=== PATIENT | female | born 1985 | race Two or more races ===

== ENCOUNTER 2020-05-20 10:16 | Outpatient (REF) | payer OTHER, SELFPAY | END 2020-05-20 10:17 | disposition home or self-care (01) | LOC: HO.LAB 10:16 | PROVIDERS: Visit Provider Internal Medicine | DX: Z20.822 Contact with and (suspected) exposure to COVID-19 (principal) | CPT/HCPCS: 36415; C9803; U0003; U0005 ==

== ENCOUNTER 2020-05-27 12:12 | Outpatient (REF) | payer OTHER, SELFPAY | END 2020-05-27 12:13 | disposition home or self-care (01) | LOC: HO.LAB 12:12 | PROVIDERS: Visit Provider Internal Medicine | DX: Z20.822 Contact with and (suspected) exposure to COVID-19 (principal) | CPT/HCPCS: 36415; C9803; U0003; U0005 ==

== ENCOUNTER 2020-09-16 17:03 | Emergency (ER) | payer OTHER, SELFPAY ==
--- NOTE | ~2020-09-16 | XR_ITS ---
EXAMINATION: XR CHEST CLINICAL INFORMATION: Cough. COMPARISON: Most recent chest radiograph dated 07/04/2017. TECHNIQUE: 2 views of the chest were obtained. FINDINGS: The lungs are clear. The cardiomediastinal silhouette is normal in size. There is no pleural effusion or pneumothorax. No acute osseous abnormality. XR/XR chest 2V IMPRESSION: No acute cardiopulmonary findings.
[2020-09-16 18:53] VITALS: BP 133/67; PULSE 85; RESP 18; TEMP 36.8; O2SAT 98; BMI 28.2
--- NOTE | 2020-09-16 19:42 | ED.URI ---
HPI - URI/Sore Throat General Chief Complaint: Upper Respiratory Symptoms Stated Complaint: bad cough, covid symptoms Time Seen by Provider: 09/16/20 19:26 Source: patient Mode of arrival: ambulatory History of Present Illness HPI Narrative: 34-year-old female with no significant past medical history presenting to the ED complaining of productive cough since last week. Admits was tested for COVID-19 on Sunday and negative at PCPs office, recommended to be tested for influenza and obtain CXR. Denies fever, chills, ear pain, sore throat, chest pain, shortness of breath, recent travel, LE edema, history of blood clots MD elicited complaint: cough Related Data Previous Rx's Medication Instructions Recorded acetaminophen [Tylenol Extra 500 mg PO Q6H PRN #20 tab 09/16/20 Strength] albuterol sulfate 2 puff INHALATION Q4-6H PRN #6.7 g 09/16/20 benzonatate [Tessalon Perles] 100 mg PO TID PRN #14 cap 09/16/20 fluticasone propionate [Children's 2 spray INTRANASAL DAILY #16 g 09/16/20 Flonase Allergy Rlf] Allergies Allergy/AdvReac Type Severity Reaction Status Date / Time No Known Allergies Allergy Verified 09/16/20 18:53 [No Known Allergies*] Review of Systems Review of Systems: Constitutional: No Fever, No Chills ENT/Mouth: No Ear Pain, No Nasal Congestion, No Sinus Pain, No sore throat Cardiovascular: No Chest Pain, No SOB Respiratory: + Cough, + Sputum, No Wheezing Gastrointestinal: No Nausea, No Vomiting, No Abdominal pain Musculoskeletal: No joint pain, No Myalgias Skin: No Skin Lesions, No rash Yes all other systems are reviewed and are negative [facility] Past Medical History Attestation statement: The following information was validated with the patient. Medical History (Updated 09/16/20 @ 19:44 by LELIA Granda) Patient denies medical problems Social History Social History Advance Directives: No Patient : No Physical Exam Vital Signs: Vital Signs: Last Vital Signs Temp 98.2 F 09/16/20 18:53 Pulse 85 09/16/20 18:53 Resp 18 09/16/20 18:53 BP 133/67 09/16/20 18:53 Pulse Ox 98 09/16/20 18:53 Body Mass Index 28.2 Const: General: cooperative, healthy appearing and no acute distress Orientation/consciousness: patient oriented x3 Limitations: no limitations HENMT: Head: Yes normal to inspection Ears: hearing grossly normal bilaterally General nose exam: Normal external nose present Face and sinus: Yes normal facial exam Eyes: General: appearance normal, both eyes and all related structures EOM: EOMs intact bilaterally Neck: Neck: Yes normal visual inspection and Yes no meningeal signs Resp: Effort & Inspection: normal respiratory effort Auscultation: clear to auscultation bilaterally, no rales, no rhonchi and no wheezes Cardio: Rate: regular rate Heart sounds: S1 normal heart sound present and S2 normal heart sound present Skin: Rashes: no rashes Wounds: no wounds Neuro: General: patient oriented x3 and no meningeal signs Gait exam (Neuro): Normal gait present Extrem: General: Yes normal to inspection and Yes no pedal edema Course Course Course Narrative: XR chest 2V IMPRESSION: No acute cardiopulmonary findings. 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 Patient verbalized understanding feel safe for discharge home -2020--COVID-19/influenza/RSV negative. This was discussed with patient prior to discharge MDM - URI/Sore Throat MDM Narrative Medical decision making narrative: 34-year-old female with no significant past medical history presenting to the ED complaining of productive cough since last week. On exam vital signs stable, NAD, lungs CTA, no pedal edema. Concern for viral syndrome/COVID-19. Rule out pneumonia. Unlikely ACS/PE Plan: CXR, COVID-19/influenza/RSV testing Differential Diagnosis Differential diagnosis: Likely upper respiratory infection Lab Data Attestation: I reviewed the patient's lab results. Labs: Lab Results 09/16/20 Range/Units 19:26 Coronavirus (PCR) NEGATIVE (Negative) Influenza Type A (PCR) NEGATIVE (Negative) Influenza Type B (PCR) NEGATIVE (Negative) RSV RNA Qual (PCR) NEGATIVE (Negative) Discharge Plan Discharge Clinical Impression: Upper respiratory infection Patient Disposition: Home, Self-Care Instructions: Viral Syndrome (ED) Additional Instructions: You have likely a viral illness. Her COVID-19, influenza, and RSV are pending at this time, you will be called this evening with results. Tessalon Perles for cough, take as needed. Use albuterol inhaler at home for shortness of breath and wheezing. Flonase and nasal decongestion. Take Tylenol and Motrin at home. Rest, stay hydrated. If her symptoms persist or worsen please return to the ED, call your PCP for follow-up Es probable que tenga jono enfermedad viral. Velazquez COVID-19, influenza y RSV est?n pendientes en phillip momento, lo llamar?n esta noche con los resultados. Tessalon Perles para la tos, uriel seg?n sea necesario. Use un inhalador de albuterol en casa para la dificultad para respirar y las sibilancias. Flonase y descongesti?n nasal. Deville Tylenol y Motrin en casa. Descansa, mantente hidratado. Si randy s?ntomas persisten o empeoran, regrese al servicio de urgencias, llame a velazquez PCP para seguimiento. Prescriptions: New albuterol sulfate 90 mcg/actuation HFA aerosol inhaler 2 puff inhalation Q4-6H PRN (Reason: shortness of breath or wheezing) Qty: 6.7 RF: 0 acetaminophen [Tylenol Extra Strength] 500 mg tablet 500 mg PO Q6H PRN (Reason: pain or fever) Qty: 20 RF: 0 benzonatate [Tessalon Perles] 100 mg capsule 100 mg PO TID PRN (Reason: cough) Qty: 14 RF: 0 fluticasone propionate [Children's Flonase Allergy Rlf] 50 mcg/actuation spray,suspension 2 spray intranasal DAILY Qty: 16 RF: 0 Referrals: Micheline Kingston MD [Primary Care Provider] - 2 days Stand Alone Forms: Work/School Release Interventions: ED Discharge Assessment Last Done: 09/16/20 20:14 Print Language: Austrian
[2020-09-16 20:16] LABS: Influenza A PCR NEGATIVE (Negative); Influenza B PCR NEGATIVE (Negative); Resp Syncy Virus RNA Qual PCR NEGATIVE (Negative); SARS COV2 PCR INHOUSE NEGATIVE (Negative)
== END 2020-09-16 20:40 | disposition home or self-care (01) ==
PROVIDERS: Emergency Provider Internal Medicine; PCP Internal Medicine
DX: J06.9 Acute upper respiratory infection, unspecified (principal); R05 Cough; Z20.822 Contact with and (suspected) exposure to COVID-19; Z79.899 Other long term (current) drug therapy
CPT/HCPCS: 0241U; 36415; 71046; 99284

== ENCOUNTER 2020-09-28 07:56 | Emergency (ER) | payer OTHER, SELFPAY ==
[2020-09-28 08:17] VITALS: BP 122/73; PULSE 69; RESP 18; TEMP 36.8; O2SAT 97; BMI 26.9
--- NOTE | 2020-09-28 08:18 | ED_ITS ---
HPI - Abdominal Pain General Chief Complaint: Abdominal Pain <LELIA Orona Last Filed: 09/28/20 09:29> Stated Complaint: Abdominal pain <LELIA Orona Last Filed: 09/28/20:29> Time Seen by Provider: 09/28/20 08:17 <LELIA Orona Last Filed: 09/28/20 09:29> Source: patient <LELIA Orona Last Filed: 09/28/20 09:29> Mode of arrival: ambulatory <LELIA Orona Last Filed: 09/28/20 09:29> Limitations: no limitations <LELIA Orona Last Filed: 09/28/20 09:29> History of Present Illness HPI narrative: 34 y/o female with history of tubal ligation 11 years ago who presents to the ER with lower abdominal pain and pain with urination for the last 2 days. She has been taking over the counter medication for a urinary tract infection without improvement. She denies fever, chills, N/V/D. Denies chance of pre gnancy. No vaginal bleeding or discharge. LMP 3 weeks ago. She reports her urine is darker orange than usual and it briceño every time she urinates. She is urinary more frequently. Abdominal pain is lower and cramping in nature. She also has bilateral lower back pain. <LELIA Orona - Last Filed: 09/28/20 09:29> MD elicited complaint: abdominal pain and other (dysuria) <LELIA Orona Last Filed: 09/28/20 09:29> Pertinent past history: none <LELIA Orona Last Filed: 09/28/20:29> Onset (ago): day(s) (2) <LELIA Orona Last Filed: 09/28/20 09:29> Pain Consistency: intermittent <LELIA Orona Last Filed: 09/28/20:29> Location: suprapubic <LELIA Orona Last Filed: 09/28/20 09:29> Severity: moderate <LELIA Orona Last Filed: 09/28/20 09:29> Quality: cramping and burning <LELIA Orona Last Filed: 09/28/20 09:29> Radiation: none <LELIA Orona Last Filed: 09/28/20 09:29> Migration to: no migration <LELIA Orona Last Filed: 09/28/20 09:29> Exacerbating factors: other (urinating) <LELIA Orona Last Filed: 09/28/20 09:29> Relieving factors: nothing <LELIA Orona Last Filed: 09/28/20 09:29> Associated symptoms: denies other symptoms <LELIA Orona Last Filed: 09/28/20 09:29> Related Data Home Medications: Previous Rx's Medication Instructions Recorded acetaminophen [Tylenol Extra 500 mg PO Q6H PRN #20 tab 09/16/20 Strength] albuterol sulfate 2 puff INHALATION Q4-6H PRN #6.7 g 09/16/20 benzonatate [Tessalon Perles] 100 mg PO TID PRN #14 cap 09/16/20 fluticasone propionate [Children's 2 spray INTRANASAL DAILY #16 g 09/16/20 Flonase Allergy Rlf] cefuroxime axetil 250 mg PO BID #10 tab 09/28/20 phenazopyridine [Pyridium] 100 mg PO TID PRN #6 tab 09/28/20 <LELIA Orona Last Filed: 09/28/20 09:29> Allergies/Adverse Reactions: Allergies Allergy/AdvReac Type Severity Reaction Status Date / Time No Known Allergies Allergy Verified 09/16/20 18:53 [No Known Allergies*] <LELIA Orona Last Filed: 09/28/20 09:29> Review of Systems Review of Systems Constitutional: No Fever, No Chills Cardiovascular: No Chest Pain, No SOB, No Orthopnea, No Edema Respiratory: No Cough, No Sputum, No Wheezing, No dyspnea Gastrointestinal: No Nausea, No Vomiting, No Diarrhea, + abdominal Pain Genitourinary: + Dysuria, + Urinary Frequency, No Hematuria Musculoskeletal: No joint pain, No Myalgias Skin: No Skin Lesions, No rash Neuro: No Weakness, No Numbness, No Dizziness, No Headache Heme/Lymph: No Bruising, No Lymphadenopathy Endocrine: No Polyuria, No Polydipsia <LELIA Orona - Last Filed: 09/28/20 09:29> Physical Exam Vital Signs: Vital Signs: Last Vital Signs Temp 98.2 F 09/28/20 08:17 Pulse 69 09/28/20 08:17 Resp 18 09/28/20 08:17 BP 122/73 09/28/20 08:17 Pulse Ox 97 09/28/20 08:17 Body Mass Index 26.9 Appearance: Alert. Oriented X3. No acute distress. Eyes: Pupils equal, round and reactive to light. ENT: Pharynx normal. Neck: Normal inspection. Neck supple. CVS: Normal heart rate and rhythm. Pulses normal. Respiratory: No respiratory distress. Breath sounds normal. Abdomen: Soft with mild suprapubic tenderness, no rebound or guarding. +BS x4. Pelvic exam deferred Skin: Skin warm and dry. Normal skin color. Normal skin turgor. No rashes. Extremities: No lower extremity edema. Neuro: Oriented X 3. No motor deficit. No sensory deficit. <LELIA Orona - Last Filed: 09/28/20 09:29> Vital Signs: Last Vital Signs Temp 98.2 F 09/28/20 08:17 Pulse 69 09/28/20 08:17 Resp 18 09/28/20 08:17 BP 122/73 09/28/20 08:17 Pulse Ox 97 09/28/20 08:17 Body Mass Index 26.9 <Israel Soto MD - Last Filed: 11/02/20 07:50> Course Course Course Narrative: 34 y/o female presenting with dysuria and suprapubic abdominal pain x2 days. Non-toxic appearing, afebrile. No N/V. Also reports bilateral lower back pain. Doubt pyelonephritis or kidney stones. Will get lab workup and UA, Upreg. <LELIA Orona - Last Filed: 09/28/20 09:29> Reevaluation(s) Reevaluation #1: UA is grossly positive for infection. No leukocytosis. Renal function is normal. She is stable for initiation of PO abx and Pyridium for symptomatic relief. Stable for discharge home. <LELIA Orona - Last Filed: 09/28/20 09:29> I have reviewed the chart <Israel Soto MD - Last Filed: 11/02/20 07:50> Time: 07:49 <Israel Soto MD - Last Filed: 11/02/20 07:50> MDM - Abdominal Pain Lab Data Result diagrams: : 09/28/20 08:35 09/28/20 08:35 <LELIA Orona - Last Filed: 09/28/20 09:29> Labs: Lab Results 09/28/20 09/28/20 09/28/20 Range/Units 08:35 08:35 08:35 WBC 9.8 (4.8-10.8) X10*3/uL RBC 4.25 (4.20-5.50) X10*6/uL Hgb 11.6 L (12.0-16.0) g/dl Hct 36.0 L (37-47) % MCV 84.7 (80-98) fL MCH 27.3 (27.0-33.0) pg MCHC 32.2 (31.0-35.0) g/dl RDW 13.2 (11.0-16.0) % Plt Count 258 (160-400) X10*3/uL MPV 9.9 (9.4-12.3) fL Immature Gran % (Auto) 0.4 (0.0-0.4) % Neut % (Auto) 75.9 H (45-73) % Lymph % (Auto) 16.4 L (20-40) % Kidder % (Auto) 5.9 (2-11) % Eos % (Auto) 1.1 (0-4) % Baso % (Auto) 0.3 (0-2) % Lymph # (Auto) 1.6 (1.2-4.9) X10*3/uL Kidder # (Auto) 0.6 (0.1-1.2) X10*3/uL Eos # (Auto) 0.1 (0.0-0.4) X10*3/uL Baso # (Auto) 0.0 (0.0-0.2) X10*3/uL Abs Immat Gran (auto) 0.04 H (0.00-0.03) X10*3/uL Absolute Neuts (auto) 7.4 (2.0-8.3) X10*3/uL Absolute Nucleated RBC 0.000 (0.0-0.012) X10*3/uL Nucleated RBC % (auto) 0.0 (0.0-0.2) /100WBC Sodium 140 (135-145) mmol/L Potassium 5.2 H (3.3-5.1) mmol/L Chloride 106 (96-108) mmol/L Carbon Dioxide 28 (22-29) mmol/L Anion Gap 11 L (12-20) BUN 13 (9-16) mg/dL Creatinine 0.66 (0.5-1.4) mg/dL Estim Creat Clear Calc 126.7 Estimated GFR > 60 Random Glucose 85 (60-115) mg/dL Calcium 9.1 (8.4-10.2) mg/dL Magnesium 2.1 (1.6-2.6) mg/dL Total Bilirubin 0.3 (0.0-1.0) mg/dL Direct Bilirubin < 0.2 (0.0-0.5) mg/dL AST 13 (5-31) U/L ALT 8 (0-31) U/L Alkaline Phosphatase 74 (39-117) U/L Total Protein 7.3 (6.5-8.0) g/dL Albumin 4.1 (3.5-5.0) g/dL Lipase 16 (8-78) U/L Beta HCG, Quant < 2 mIU/mL Urine Color Urine Appearance Urine pH (5.0-8.0) Ur Specific [place] (1.005-1.025) Urine Protein (NEG-TRACE) MG/DL Urine Glucose (UA) (NEG) MG/DL Urine Ketones (NEG) MG/DL Urine Blood (NEG) Urine Nitrite Ur Leukocyte Esterase (NEG) Urine RBC (0) /HPF Urine WBC (0-4) /HPF Ur Squamous Epith Cells /LPF Urine Bacteria /LPF Urine Test (NEGATIVE) 09/28/20 09/28/20 Range/Units 08:35 08:35 WBC (4.8-10.8) X10*3/uL RBC (4.20-5.50) X10*6/uL Hgb (12.0-16.0) g/dl Hct (37-47) % MCV (80-98) fL MCH (27.0-33.0) pg MCHC (31.0-35.0) g/dl RDW (11.0-16.0) % Plt Count (160-400) X10*3/uL MPV (9.4-12.3) fL Immature Gran % (Auto) (0.0-0.4) % Neut % (Auto) (45-73) % Lymph % (Auto) (20-40) % Kidder % (Auto) (2-11) % Eos % (Auto) (0-4) % Baso % (Auto) (0-2) % Lymph # (Auto) (1.2-4.9) X10*3/uL Kidder # (Auto) (0.1-1.2) X10*3/uL Eos # (Auto) (0.0-0.4) X10*3/uL Baso # (Auto) (0.0-0.2) X10*3/uL Abs Immat Gran (auto) (0.00-0.03) X10*3/uL Absolute Neuts (auto) (2.0-8.3) X10*3/uL Absolute Nucleated RBC (0.0-0.012) X10*3/uL Nucleated RBC % (auto) (0.0-0.2) /100WBC Sodium (135-145) mmol/L Potassium (3.3-5.1) mmol/L Chloride (96-108) mmol/L Carbon Dioxide (22-29) mmol/L Anion Gap (12-20) BUN (9-16) mg/dL Creatinine (0.5-1.4) mg/dL Estim Creat Clear Calc Estimated GFR Random Glucose (60-115) mg/dL Calcium (8.4-10.2) mg/dL Magnesium (1.6-2.6) mg/dL Total Bilirubin (0.0-1.0) mg/dL Direct Bilirubin (0.0-0.5) mg/dL AST (5-31) U/L ALT (0-31) U/L Alkaline Phosphatase (39-117) U/L Total Protein (6.5-8.0) g/dL Albumin (3.5-5.0) g/dL Lipase (8-78) U/L Beta HCG, Quant mIU/mL Urine Color DARK YELLOW Urine Appearance CLOUDY Urine pH 7.0 (5.0-8.0) Ur Specific [place] 1.025 (1.005-1.025) Urine Protein 1+ H (NEG-TRACE) MG/DL Urine Glucose (UA) NEG (NEG) MG/DL Urine Ketones NEG (NEG) MG/DL Urine Blood 3+ H (NEG) Urine Nitrite TNP Ur Leukocyte Esterase 1+ H (NEG) Urine RBC 50-75 H (0) /HPF Urine WBC 50-75 H (0-4) /HPF Ur Squamous Epith Cells 1+ /LPF Urine Bacteria NONE /LPF Urine Test NEGATIVE (NEGATIVE) <LELIA Orona - Last Filed: 09/28/20 09:29> Lab Results 09/28/20 09/28/20 09/28/20 Range/Units 08:35 08:35 08:35 WBC 9.8 (4.8-10.8) X10*3/uL RBC 4.25 (4.20-5.50) X10*6/uL Hgb 11.6 L (12.0-16.0) g/dl Hct 36.0 L (37-47) % MCV 84.7 (80-98) fL MCH 27.3 (27.0-33.0) pg MCHC 32.2 (31.0-35.0) g/dl RDW 13.2 (11.0-16.0) % Plt Count 258 (160-400) X10*3/uL MPV 9.9 (9.4-12.3) fL Immature Gran % (Auto) 0.4 (0.0-0.4) % Neut % (Auto) 75.9 H (45-73) % Lymph % (Auto) 16.4 L (20-40) % Kidder % (Auto) 5.9 (2-11) % Eos % (Auto) 1.1 (0-4) % Baso % (Auto) 0.3 (0-2) % Lymph # (Auto) 1.6 (1.2-4.9) X10*3/uL Kidder # (Auto) 0.6 (0.1-1.2) X10*3/uL Eos # (Auto) 0.1 (0.0-0.4) X10*3/uL Baso # (Auto) 0.0 (0.0-0.2) X10*3/uL Abs Immat Gran (auto) 0.04 H (0.00-0.03) X10*3/uL Absolute Neuts (auto) 7.4 (2.0-8.3) X10*3/uL Absolute Nucleated RBC 0.000 (0.0-0.012) X10*3/uL Nucleated RBC % (auto) 0.0 (0.0-0.2) /100WBC Sodium 140 (135-145) mmol/L Potassium 5.2 H (3.3-5.1) mmol/L Chloride 106 (96-108) mmol/L Carbon Dioxide 28 (22-29) mmol/L Anion Gap 11 L (12-20) BUN 13 (9-16) mg/dL Creatinine 0.66 (0.5-1.4) mg/dL Estim Creat Clear Calc 126.7 Estimated GFR > 60 Random Glucose 85 (60-115) mg/dL Calcium 9.1 (8.4-10.2) mg/dL Magnesium 2.1 (1.6-2.6) mg/dL Total Bilirubin 0.3 (0.0-1.0) mg/dL Direct Bilirubin < 0.2 (0.0-0.5) mg/dL AST 13 (5-31) U/L ALT 8 (0-31) U/L Alkaline Phosphatase 74 (39-117) U/L Total Protein 7.3 (6.5-8.0) g/dL Albumin 4.1 (3.5-5.0) g/dL Lipase 16 (8-78) U/L Beta HCG, Quant < 2 mIU/mL Urine Color Urine Appearance Urine pH (5.0-8.0) Ur Specific [place] (1.005-1.025) Urine Protein (NEG-TRACE) MG/DL Urine Glucose (UA) (NEG) MG/DL Urine Ketones (NEG) MG/DL Urine Blood (NEG) Urine Nitrite Ur Leukocyte Esterase (NEG) Urine RBC (0) /HPF Urine WBC (0-4) /HPF Ur Squamous Epith Cells /LPF Urine Bacteria /LPF Urine Test (NEGATIVE) 09/28/20 09/28/20 Range/Units 08:35 08:35 WBC (4.8-10.8) X10*3/uL RBC (4.20-5.50) X10*6/uL Hgb (12.0-16.0) g/dl Hct (37-47) % MCV (80-98) fL MCH (27.0-33.0) pg MCHC (31.0-35.0) g/dl RDW (11.0-16.0) % Plt Count (160-400) X10*3/uL MPV (9.4-12.3) fL Immature Gran % (Auto) (0.0-0.4) % Neut % (Auto) (45-73) % Lymph % (Auto) (20-40) % Kidder % (Auto) (2-11) % Eos % (Auto) (0-4) % Baso % (Auto) (0-2) % Lymph # (Auto) (1.2-4.9) X10*3/uL Kidder # (Auto) (0.1-1.2) X10*3/uL Eos # (Auto) (0.0-0.4) X10*3/uL Baso # (Auto) (0.0-0.2) X10*3/uL Abs Immat Gran (auto) (0.00-0.03) X10*3/uL Absolute Neuts (auto) (2.0-8.3) X10*3/uL Absolute Nucleated RBC (0.0-0.012) X10*3/uL Nucleated RBC % (auto) (0.0-0.2) /100WBC Sodium (135-145) mmol/L Potassium (3.3-5.1) mmol/L Chloride (96-108) mmol/L Carbon Dioxide (22-29) mmol/L Anion Gap (12-20) BUN (9-16) mg/dL Creatinine (0.5-1.4) mg/dL Estim Creat Clear Calc Estimated GFR Random Glucose (60-115) mg/dL Calcium (8.4-10.2) mg/dL Magnesium (1.6-2.6) mg/dL Total Bilirubin (0.0-1.0) mg/dL Direct Bilirubin (0.0-0.5) mg/dL AST (5-31) U/L ALT (0-31) U/L Alkaline Phosphatase (39-117) U/L Total Protein (6.5-8.0) g/dL Albumin (3.5-5.0) g/dL Lipase (8-78) U/L Beta HCG, Quant mIU/mL Urine Color DARK YELLOW Urine Appearance CLOUDY Urine pH 7.0 (5.0-8.0) Ur Specific [place] 1.025 (1.005-1.025) Urine Protein 1+ H (NEG-TRACE) MG/DL Urine Glucose (UA) NEG (NEG) MG/DL Urine Ketones NEG (NEG) MG/DL Urine Blood 3+ H (NEG) Urine Nitrite TNP Ur Leukocyte Esterase 1+ H (NEG) Urine RBC 50-75 H (0) /HPF Urine WBC 50-75 H (0-4) /HPF Ur Squamous Epith Cells 1+ /LPF Urine Bacteria NONE /LPF Urine Test NEGATIVE (NEGATIVE) <Israel Soto MD - Last Filed: 11/02/20 07:50> Discharge Plan Discharge Clinical Impression: UTI (urinary tract infection) <LELIA Orona - Last Filed: 09/28/20 09:29> Patient Disposition: Home, Self-Care <LELIA Orona - Last Filed: 09/28/20 09:29> Instructions: Urinary Tract Infection in Women (ED) <LELIA Orona - Last Filed: 09/28/20 09:29> Additional Instructions: Your urine test showed infection. Your blood work was unremarkable. Take the prescribed antibiotic as directed - start taking tonight, you were given 1st dose in the ER. Stay hydrated, drink plenty of water. Take Pyridium as needed for bladder pain - it will turn your urine orange and this is normal. Follow up with your doctor as needed. No sexual activity until all your symptoms are completely resolved. If you have worsening pain or develop vomiting, fevers or any other concerns come back to the ER for further evaluation. Henry an?lisis de orina mostr? infecci?n. Tu an?lisis de mikaela no tuvo nada especial. [place] el antibi?vasiliy recetado seg?n las indicaciones; comience a tomarlo esta noche, le dieron la primera dosis en la candace de emergencias. Mantente hidratado, anaya niya agua. [place] Pyridium seg?n sea necesario para el dolor de vejiga; dasha? que henry orina se vuelva naranja y esto es normal. [place] un seguimiento con henry m?dico seg?n sea necesario. No tenga actividad sexual hasta que todos randy s?ntomas se hayan resuelto por completo. Si tiene un dolor que empeora o desarrolla v?mitos, fiebre o cualquier otra in quietud, regrese a la candace de emergencias para jono evaluaci?n adicional. <LELIA Orona - Last Filed: 09/28/20 09:29> Prescriptions: New cefuroxime axetil 250 mg tablet 250 mg PO BID Qty: 10 RF: 0 phenazopyridine [Pyridium] 100 mg tablet 100 mg PO TID PRN (Reason: pain) Qty: 6 RF: 0 No Action albuterol sulfate 90 mcg/actuation HFA aerosol inhaler 2 puff inhalation Q4-6H PRN (Reason: shortness of breath or wheezing) Qty: 6.7 RF: 0 acetaminophen [Tylenol Extra Strength] 500 mg tablet 500 mg PO Q6H PRN (Reason: pain or fever) Qty: 20 RF: 0 benzonatate [Tessalon Perles] 100 mg capsule 100 mg PO TID PRN (Reason: cough) Qty: 14 RF: 0 fluticasone propionate [Children's Flonase Allergy Rlf] 50 mcg/actuation spray,suspension 2 spray intranasal DAILY Qty: 16 RF: 0 <LELIA Orona - Last Filed: 09/28/20 09:29> Interventions: ED Discharge Assessment Last Done: 09/28/20 10:30 <LELIA Orona - Last Filed: 09/28/20 09:29> Discharge Date/Time: 09/28/20 10:30 <LELIA Orona - Last Filed: 09/28/20 09:29> [facility] Past Medical History Attestation statement: The following information was validated with the patient. <LELIA Orona - Last Filed: 09/28/20 09:29> Medical History: Medical History Patient denies medical problems <LELIA Orona - Last Filed: 09/28/20 09:29> Social History Social History: Social History Advance Directives: No Advance Directives Information Provided: No <LELIA Orona - Last Filed: 09/28/20 09:29>
[2020-09-28 08:44] LABS: MANUAL DIFF FLAG NO
[2020-09-28 08:47] LABS: Basophils Percent Auto 0.3 % (0-2); Eosinophils Absolute Auto 0.1 X10*3/uL (0.0-0.4); Eosinophils Percent Auto 1.1 % (0-4); Glucose Urine UA NEG (NEG); Hemoglobin 11.6 g/dl (12.0-16.0); Imm Gran Abs Auto 0.04 X10*3/uL (0.00-0.03); Imm Gran Pct Auto 0.4 % (0.0-0.4); Leukocyte Esterase Urine 1+ (NEG); Lymphocytes Absolute Auto 1.6 X10*3/uL (1.2-4.9); Lymphocytes Percent Auto 16.4 % (20-40); Mean Corpuscular HGB Conc 32.2 g/dl (31.0-35.0); Mean Corpuscular Hemoglobin 27.3 pg (27.0-33.0); Mean Corpuscular Volume 84.7 fL (80-98); Mean Platelet Volume 9.9 fL (9.4-12.3); Monocytes Absolute Auto 0.6 X10*3/uL (0.1-1.2); Monocytes Percent Auto 5.9 % (2-11); Neutrophils Absolute Auto 7.4 X10*3/uL (2.0-8.3); Neutrophils Percent Auto 75.9 % (45-73); Platelet Count 258 X10*3/uL (160-400); Red Blood Count 4.25 X10*6/uL (4.20-5.50); Red Cell Distribution Width 13.2 % (11.0-16.0); Specific Gravity - Urine 1.025 (1.005-1.025); UACC Culture Trigger YES; Urine Blood 3+ (NEG); Urine Ketones NEG (NEG); Urine Protein 1+ MG/DL (NEG-TRACE); White Blood Count 9.8 X10*3/uL (4.8-10.8)
[2020-09-28 08:48] LABS: Appearance Urine CLOUDY; Color Urine DARK YELLOW
[2020-09-28 08:50] LABS: UPreg QC Valid YES; Urine Pregnancy NEGATIVE (NEGATIVE)
[2020-09-28 08:58] LABS: RBC Urine 50-75 /HPF (0); Squamous Epithelial Cell Urine 1+ /LPF; WBC Urine 50-75 /HPF (0-4)
[2020-09-28] MEDS: Phenazopyridine HCL 200 MG TABLET PO (09:05)
[2020-09-28 09:11] LABS: Anion Gap 11 (12-20); Blood Urea Nitrogen 13 mg/dL (9-16); Calcium 9.1 mg/dL (8.4-10.2); Carbon Dioxide 28 mmol/L (22-29); Chloride 106 mmol/L (96-108); Creatinine Clr Calc Pharmacy 126.7; Estimated Glomerular Filt Rate > 60; Glucose Random 85 mg/dL (60-115); Potassium 5.2 mmol/L (3.3-5.1); Sodium 140 mmol/L (135-145)
[2020-09-28 09:12] LABS: Alanine Aminotransferase 8 U/L (0-31); Albumin Level 4.1 g/dL (3.5-5.0); Alkaline Phosphatase 74 U/L (39-117); Aspartate Amino Transferase 13 U/L (5-31); Bilirubin Direct < 0.2 mg/dL (0.0-0.5); Bilirubin Total 0.3 mg/dL (0.0-1.0); Lipase 16 U/L (8-78); Magnesium 2.1 mg/dL (1.6-2.6); Total Protein 7.3 g/dL (6.5-8.0)
[2020-09-28 09:18] LABS: HCG Quantitative < 2 mIU/mL
== END 2020-09-28 10:30 | disposition home or self-care (01) ==
PROVIDERS: Physician Assistant; Emergency Provider Emergency Medicine; PCP Internal Medicine
DX: N30.01 Acute cystitis with hematuria (principal); Z98.51 Tubal ligation status
CPT/HCPCS: 36415; 80048; 80076; 81001; 81003; 81025; 83690; 83735; 84702; 85025; 87086; 87088; 87186; 99283

== ENCOUNTER 2020-12-21 13:43 | Emergency (ER) | payer OTHER, SELFPAY ==
[2020-12-21 14:55] VITALS: BP 123/84; PULSE 64; RESP 19; TEMP 36.1; O2SAT 99; BMI 25.0
--- NOTE | 2020-12-21 17:01 | ED_ITS ---
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 Patient tells me she started to feel like she was on a boat and her body was rocking. She had some nausea with this. She denies any vision changes, vomiting, numbness or tingling. No chest pain or abdominal pain. No headache. Eating and drinking normally. No recent URI symptoms Related Data Previous Rx's Medication Instructions Recorded acetaminophen 500 mg tablet 500 mg PO Q6H PRN #20 tab 09/16/20 (Tylenol Extra Strength) albuterol sulfate 90 mcg/actuation 2 puff INHALATION Q4-6H PRN #6.7 g 09/16/20 aerosol inhaler benzonatate 100 mg capsule 100 mg PO TID PRN #14 cap 09/16/20 (Tessalon Perles) fluticasone propionate 50 2 spray INTRANASAL DAILY #16 g 09/16/20 mcg/actuation nasal spray,suspension (Children's Flonase Allergy Relief) cefuroxime axetil 250 mg tablet 250 mg PO BID #10 tab 09/28/20 phenazopyridine 100 mg tablet 100 mg PO TID PRN #6 tab 09/28/20 (Pyridium) meclizine 25 mg tablet 25 mg PO TID PRN #10 tab 12/21/20 Allergies Allergy/AdvReac Type Severity Reaction Status Date / Time No Known Allergies Allergy Verified 09/16/20 18:53 [No Known Allergies*] Review of Systems Review of Systems: Yes all other systems are reviewed and are negative Constitutional: Constitutional: Reports no additional constitutional complaints, Denies body ache(s), Denies chills, Denies fever(s), Denies headache(s) and Denies weakness Eyes: Eyes: Reports no additional eye complaints and Denies change in vision ENT: Reports system reviewed and no additional complaints, except as documen corey, Reports dizziness, Denies headache(s), Denies nasal congestion, Denies nasal discharge and Denies neck pain Cardiovascular: Cardiovascular: Reports no additional cardiovascular complaints, Denies chest pain, Denies leg edema and Denies dyspnea Respiratory: Respiratory: Reports no additional respiratory complaints, Denies cough and Denies dyspnea Gastrointestinal: Gastrointestinal: Reports no additional gastrointestinal complaints, Denies abdominal pain, Denies diarrhea, Denies nausea and Denies vomiting Genitourinary: Genitourinary: Reports no additional female genitourinary complaints and Denies urinary incontinence Musculoskeletal: Musculoskeletal: Reports no additional musculoskeletal complaints, Denies back pain, Denies arthralgias, Denies joint swelling, Denies neck pain, Denies numbness and Denies tingling Integumentary/Breasts: Skin/Breast: Reports system reviewed and no additional complaints, except as docu and Denies rash Neurologic: Reports system reviewed and no additional complaints, except as documented, Denies Abnormal speech present, Reports dizziness, Denies headache(s), Denies numbness, Denies tingling and Denies weakness PMFSH Past Medical History Attestation statement: The following information was validated with the patient. Source: old records reviewed and nursing notes reviewed Medical History Patient denies medical problems Social History Social History Advance Directives: No Advance Directives Information Provided: No Patient : No Physical Exam Vital Signs: Vital Signs: Last Vital Signs Temp 97 F 12/21/20 14:55 Pulse 78 12/21/20 18:01 Resp 18 12/21/20 17:33 BP 131/68 12/21/20 18:01 Pulse Ox 100 12/21/20 17:33 Body Mass Index 25.0 Const: General: cooperative, healthy appearing, comfortable and no acute distress Orientation/consciousness: patient oriented x3 Limitations: no limitations HENMT: Head: Yes normal to inspection Ears: hearing grossly normal bilaterally and TM's normal bilaterally General nose exam: Normal external nose present Face and sinus: Yes normal facial exam Mouth: Normal oral and palatal mucosa present Throat: Yes posterior oropharynx normal, Yes tonsils normal and Yes uvula midline Eyes: General: appearance normal, both eyes and all related structures Pupils: Equal, round and reactive pupils present Neck: Neck: Yes normal visual inspection Chest: Chest palpation & inspection: normal inspection of the chest Resp: Effort & Inspection: normal respiratory effort Auscultation: clear to auscultation bilaterally Cardio: Rate: regular rate Rhythm: regular rhythm Peripheral pulses: Peripheral pulses 2+ throughout GI: Inspection: Yes normal to inspection Palpation (GI): Soft to palpation and nontender Auscultation: normal bowel sounds Back/Spine/Pelvis: Thoracic/Lumbar Spine: thoracic and lumbar spine normal to inspection Skin: General skin exam: no rashes or lesions noted Neuro: General: patient oriented x3, no focal motor deficits and normal sensation to monofilament Cranial nerves: Yes CN's II-XII intact bilaterally, Yes Equal, round and reactive pupils present, Yes Bilaterally intact EOM present, Yes Nystagmus not present, Yes Normal facial strength present and Yes Midline tongue present Cognition (Neuro): normal cognition Speech: No Abnormal speech present Gait exam (Neuro): Normal gait present Motor exam (neuro): 5/5 motor strength present throughout Sensory Exam: Normal double simultaneous stimulation for sensation Coordination: trlmmo-ob-[id number] test normal, xwpa-us-ctoi test normal and tandem gait normal Extrem: General: Yes normal to inspection, Yes no pedal edema and Yes no calf tenderness NIH Stroke Scale Internal: Initial- Upon Arrival Level of Consciousness: Alert Level of Consciousness Questions: Answers both questions correctly Level of Consciousness Commands: Performs both tasks correctly Best Gaze: Normal Visual: No visual loss Facial Palsy: Normal Motor Arm (Right): No drift Motor Arm (Left): No drift Motor Leg (Right): No drift Motor Leg (Left): No drift Limb Ataxia: Absent Sensory: Normal Best Language: No aphasia Dysarthia: Normal Extinction and Inattention: No abnormality Score: 0 Course Course Course Narrative: 35-year-old female here with complaints of dizziness which is described as her body moving for several hours. Normal neurological exam. No neuro deficits or red flag symptoms. Likely BPPV. Will check labs, UA, orthostatics. Will give meclizine and reassess. 1900-labs, urine and orthostatics are negative. Patient received meclizine and tells me her symptoms are resolved. Likely vertigo. Will send home with p.r.n.. Reviewed worrisome signs and symptoms of when to return to the emergency department. Comfortable discharge home. MDM - Dizziness MDM Narrative Medical decision making narrative: Less likely CVA with normal neurological exam and improving symptoms Differential Diagnosis Differential diagnosis: Likely benign paroxysmal positional vertigo and orthostatic hypotension Medical Records Attestation: I reviewed the patient's medical records. Lab Data Attestation: I reviewed the patient's lab results. Result diagrams: 12/21/20 17:56 12/21/20 17:56 Labs: Lab Results 12/21/20 12/21/20 12/21/20 Range/Units 17:56 17:56 18:02 WBC 7.6 (4.8-10.8) X10*3/uL RBC 4.47 (4.20-5.50) X10*6/uL Hgb 12.1 (12.0-16.0) g/dl Hct 36.9 L (37-47) % MCV 82.6 (80-98) fL MCH 27.1 (27.0-33.0) pg MCHC 32.8 (31.0-35.0) g/dl RDW 13.5 (11.0-16.0) % Plt Count 266 (160-400) X10*3/uL MPV 10.3 (9.4-12.3) fL Immature Gran % (Auto) 0.7 H (0.0-0.4) % Neut % (Auto) 64.6 (45-73) % Lymph % (Auto) 26.2 (20-40) % [place] % (Auto) 6.9 (2-11) % Eos % (Auto) 1.2 (0-4) % Baso % (Auto) 0.4 (0-2) % Lymph # (Auto) 2.0 (1.2-4.9) X10*3/uL [place] # (Auto) 0.5 (0.1-1.2) X10*3/uL Eos # (Auto) 0.1 (0.0-0.4) X10*3/uL Baso # (Auto) 0.0 (0.0-0.2) X10*3/uL Abs Immat Gran (auto) 0.05 H (0.00-0.03) X10*3/uL Absolute Neuts (auto) 4.9 (2.0-8.3) X10*3/uL Absolute Nucleated RBC 0.000 (0.0-0.012) X10*3/uL Nucleated RBC % (auto) 0.0 (0.0-0.2) /100WBC Sodium 137 (135-145) mmol/L Potassium 4.0 D (3.3-5.1) mmol/L Chloride 102 (96-108) mmol/L Carbon Dioxide 27 (22-29) mmol/L Anion Gap 12 (12-20) BUN 7 L (9-16) mg/dL Creatinine 0.68 (0.5-1.4) mg/dL Estim Creat Clear Calc 110.1 Estimated GFR > 60 Random Glucose 129 H D (60-115) mg/dL Calcium 9.2 (8.4-10.2) mg/dL Magnesium 1.9 (1.6-2.6) mg/dL Total Bilirubin 0.4 (0.0-1.0) mg/dL Direct Bilirubin < 0.2 (0.0-0.5) mg/dL AST 15 (5-31) U/L ALT 15 (0-31) U/L Alkaline Phosphatase 75 (39-117) U/L Total Protein 7.9 (6.5-8.0) g/dL Albumin 4.3 (3.5-5.0) g/dL Urine Color YELLOW Urine Appearance HAZY Urine pH 6.5 (5.0-8.0) Ur Specific [place] 1.015 (1.005-1.025) Urine Protein NEG (NEG-TRACE) MG/DL Urine Glucose (UA) NEG (NEG) MG/DL Urine Ketones NEG (NEG) MG/DL Urine Blood TRACE (NEG) Urine Nitrite NEG (NEG) Ur Leukocyte Esterase NEG (NEG) Urine RBC 0-2 (0) /HPF Urine WBC 0 (0-4) /HPF Ur Squamous Epith Cells 2+ /LPF Urine Bacteria NONE /LPF Urine Mucus 1+ /LPF Urine Test (NEGATIVE) 12/21/20 Range/Units 18:02 WBC (4.8-10.8) X10*3/uL RBC (4.20-5.50) X10*6/uL Hgb (12.0-16.0) g/dl Hct (37-47) % MCV (80-98) fL MCH (27.0-33.0) pg MCHC (31.0-35.0) g/dl RDW (11.0-16.0) % Plt Count (160-400) X10*3/uL MPV (9.4-12.3) fL Immature Gran % (Auto) (0.0-0.4) % Neut % (Auto) (45-73) % Lymph % (Auto) (20-40) % [place] % (Auto) (2-11) % Eos % (Auto) (0-4) % Baso % (Auto) (0-2) % Lymph # (Auto) (1.2-4.9) X10*3/uL [place] # (Auto) (0.1-1.2) X10*3/uL Eos # (Auto) (0.0-0.4) X10*3/uL Baso # (Auto) (0.0-0.2) X10*3/uL Abs Immat Gran (auto) (0.00-0.03) X10*3/uL Absolute Neuts (auto) (2.0-8.3) X10*3/uL Absolute Nucleated RBC (0.0-0.012) X10*3/uL Nucleated RBC % (auto) (0.0-0.2) /100WBC Sodium (135-145) mmol/L Potassium (3.3-5.1) mmol/L Chloride (96-108) mmol/L Carbon Dioxide (22-29) mmol/L Anion Gap (12-20) BUN (9-16) mg/dL Creatinine (0.5-1.4) mg/dL Estim Creat Clear Calc Estimated GFR Random Glucose (60-115) mg/dL Calcium (8.4-10.2) mg/dL Magnesium (1.6-2.6) mg/dL Total Bilirubin (0.0-1.0) mg/dL Direct Bilirubin (0.0-0.5) mg/dL AST (5-31) U/L ALT (0-31) U/L Alkaline Phosphatase (39-117) U/L Total Protein (6.5-8.0) g/dL Albumin (3.5-5.0) g/dL Urine Color Urine Appearance Urine pH (5.0-8.0) Ur Specific [place] (1.005-1.025) Urine Protein (NEG-TRACE) MG/DL Urine Glucose (UA) (NEG) MG/DL Urine Ketones (NEG) MG/DL Urine Blood (NEG) Urine Nitrite (NEG) Ur Leukocyte Esterase (NEG) Urine RBC (0) /HPF Urine WBC (0-4) /HPF Ur Squamous Epith Cells /LPF Urine Bacteria /LPF Urine Mucus /LPF Urine Test NEGATIVE (NEGATIVE) Discharge Plan Discharge Clinical Impression: Benign paroxysmal positional vertigo Patient Disposition: Home, Self-Care Instructions: Vertigo (ED) Additional Instructions: Increase fluids, rest Change positions slowly Take meclizine for symptoms as needed Follow-up with your primary care doctor in several days for persistent symptoms Prescriptions: New meclizine 25 mg tablet 25 mg PO TID PRN (Reason: dizziness) Qty: 10 RF: 0 No Action albuterol sulfate 90 mcg/actuation HFA aerosol inhaler 2 puff inhalation Q4-6H PRN (Reason: shortness of breath or wheezing) Qty: 6.7 RF: 0 acetaminophen [Tylenol Extra Strength] 500 mg tablet 500 mg PO Q6H PRN (Reason: pain or fever) Qty: 20 RF: 0 benzonatate [Tessalon Perles] 100 mg capsule 100 mg PO TID PRN (Reason: cough) Qty: 14 RF: 0 fluticasone propionate [Children's Flonase Allergy Rlf] 50 mcg/actuation spray,suspension 2 spray intranasal DAILY Qty: 16 RF: 0 cefuroxime axetil 250 mg tablet 250 mg PO BID Qty: 10 RF: 0 phenazopyridine [Pyridium] 100 mg tablet 100 mg PO TID PRN (Reason: pain) Qty: 6 RF: 0 Referrals: Micheline Kingston MD [Primary Care Provider] - 2 days Stand Alone Forms: Work/School Release Print Language: Ug[place]an
[2020-12-21] MEDS: Meclizine HCl 25 MG TABLET PO (17:31)
[2020-12-21 17:33] VITALS: BP 130/82; PULSE 68; RESP 18; O2SAT 100
[2020-12-21 17:59] VITALS: BP 135/77; BP 143/81; PULSE 68; PULSE 72
--- NOTE | 2020-12-21 18:00 | PC.NURSE ---
Pt alert and oriented x3, vss. Pt c/o dizziness which began this afternoon while working. Pt states she felt like she was on a boat and her body was rocking, she also reports felling nauseous at the time. She denies numbness/tingling/vision changes. No headache, no abdominal pain, no chest pain. Pt resting quietly, no apparent distress noted. Labs drawn, results pending.
[2020-12-21 18:01] VITALS: BP 131/68; PULSE 78
[2020-12-21 18:01] LABS: MANUAL DIFF FLAG NO
[2020-12-21 18:20] LABS: Alanine Aminotransferase 15 U/L (0-31); Albumin Level 4.3 g/dL (3.5-5.0); Alkaline Phosphatase 75 U/L (39-117); Anion Gap 12 (12-20); Aspartate Amino Transferase 15 U/L (5-31); Bilirubin Direct < 0.2 mg/dL (0.0-0.5); Bilirubin Total 0.4 mg/dL (0.0-1.0); Blood Urea Nitrogen 7 mg/dL (9-16); Calcium 9.2 mg/dL (8.4-10.2); Carbon Dioxide 27 mmol/L (22-29); Chloride 102 mmol/L (96-108); Creatinine Clr Calc Pharmacy 110.1; Estimated Glomerular Filt Rate > 60; Glucose Random 129 mg/dL (60-115); Magnesium 1.9 mg/dL (1.6-2.6); Sodium 137 mmol/L (135-145); Total Protein 7.9 g/dL (6.5-8.0)
[2020-12-21 18:21] LABS: Glucose Urine UA NEG (NEG); Leukocyte Esterase Urine NEG (NEG); Nitrite Urine NEG (NEG); PH 6.5 (5.0-8.0); Specific Gravity - Urine 1.015 (1.005-1.025); UACC Culture Trigger NO; Urine Blood TRACE (NEG); Urine Ketones NEG (NEG); Urine Protein NEG (NEG-TRACE)
[2020-12-21 18:26] LABS: Appearance Urine HAZY; Color Urine YELLOW; UPreg QC Valid YES; Urine Pregnancy NEGATIVE (NEGATIVE)
[2020-12-21 18:30] LABS: Basophils Percent Auto 0.4 % (0-2); Eosinophils Absolute Auto 0.1 X10*3/uL (0.0-0.4); Eosinophils Percent Auto 1.2 % (0-4); Hematocrit 36.9 % (37-47); Hemoglobin 12.1 g/dl (12.0-16.0); Imm Gran Abs Auto 0.05 X10*3/uL (0.00-0.03); Imm Gran Pct Auto 0.7 % (0.0-0.4); Lymphocytes Percent Auto 26.2 % (20-40); Mean Corpuscular HGB Conc 32.8 g/dl (31.0-35.0); Mean Corpuscular Hemoglobin 27.1 pg (27.0-33.0); Mean Corpuscular Volume 82.6 fL (80-98); Mean Platelet Volume 10.3 fL (9.4-12.3); Monocytes Absolute Auto 0.5 X10*3/uL (0.1-1.2); Monocytes Percent Auto 6.9 % (2-11); Neutrophils Absolute Auto 4.9 X10*3/uL (2.0-8.3); Neutrophils Percent Auto 64.6 % (45-73); Platelet Count 266 X10*3/uL (160-400); Red Blood Count 4.47 X10*6/uL (4.20-5.50); Red Cell Distribution Width 13.5 % (11.0-16.0); White Blood Count 7.6 X10*3/uL (4.8-10.8)
[2020-12-21 18:41] LABS: Mucus Urine 1+ /LPF; RBC Urine 0-2 /HPF (0); Squamous Epithelial Cell Urine 2+ /LPF; WBC Urine 0 /HPF (0-4)
== END 2020-12-21 19:20 | disposition home or self-care (01) ==
PROVIDERS: Nurse Practitioner Family; Emergency Provider Emergency Medicine; PCP Internal Medicine
DX: H81.10 Benign paroxysmal vertigo, unspecified ear (principal)
CPT/HCPCS: 36415; 80048; 80076; 81001; 81025; 83735; 85025; 99283; 99284

== ENCOUNTER 2021-04-21 11:01 | Outpatient (REF) | payer OTHER, SELFPAY ==
[2021-04-21 13:17] LABS: Binax Internal Control QC Valid; Binax Now Covid-19 Ag Negative (Negative)
== END 2021-04-21 11:02 | disposition home or self-care (01) ==
LOC: HO.LAB 11:01
PROVIDERS: Visit Provider Internal Medicine
DX: Z20.822 Contact with and (suspected) exposure to COVID-19 (principal)
CPT/HCPCS: 36415; C9803

== ENCOUNTER → 2021-11-02 07:05 | Outpatient (REF) | payer OTHER, SELFPAY ==
--- NOTE | 2021-11-02 07:14 | ECG_ITS ---
Test Reason : DIZZINESS Blood Pressure : / mmHG Vent. Rate : 058 BPM Atrial Rate : 058 BPM P-R Int : 130 ms QRS Dur : 076 ms QT Int : 430 ms P-R-T Axes : -03 051 034 degrees QTc Int : 422 ms Sinus bradycardia Otherwise normal ECG When compared with ECG of 23-JUN-2019 17:52, No significant change was found Referred By: Micheline Meadows Electronically Signed By:Bridger Dee
[2021-11-02 07:28] LABS: MANUAL DIFF FLAG NO
[2021-11-02 07:33] LABS: Basophils Percent Auto 0.7 % (0-2); Eosinophils Absolute Auto 0.1 X10*3/uL (0.0-0.4); Eosinophils Percent Auto 1.6 % (0-4); Hematocrit 35.7 % (37.0-47.0); Imm Gran Abs Auto 0.04 X10*3/uL (0.00-0.03); Imm Gran Pct Auto 0.7 % (0.0-0.4); Lymphocytes Absolute Auto 1.8 X10*3/uL (1.2-4.9); Lymphocytes Percent Auto 31.6 % (20-40); Mean Corpuscular HGB Conc 30.8 g/dl (31.0-35.0); Mean Corpuscular Hemoglobin 24.7 pg (27.0-33.0); Mean Platelet Volume 10.1 fL (9.4-12.3); Monocytes Absolute Auto 0.4 X10*3/uL (0.1-1.2); Monocytes Percent Auto 7.1 % (2-11); Neutrophils Absolute Auto 3.4 x10*3/uL (2.0-8.3); Neutrophils Percent Auto 58.3 % (45-73); Platelet Count 266 X10*3/uL (160-400); Red Blood Count 4.46 X10*6/uL (4.20-5.50); Red Cell Distribution Width 14.1 % (11.0-16.0); White Blood Count 5.8 X10*3/uL (4.8-10.8)
[2021-11-02 08:03] LABS: Alanine Aminotransferase 11 U/L (0-31); Albumin Level 3.9 g/dL (3.5-5.0); Alkaline Phosphatase 62 U/L (39-117); Anion Gap 10 (12-20); Aspartate Amino Transferase 14 U/L (5-31); Bilirubin Total 0.3 mg/dL (0.0-1.0); Blood Urea Nitrogen 9 mg/dL (9-16); Carbon Dioxide 26 mmol/L (22-29); Chloride 105 mmol/L (96-108); Cholesterol 151 mg/dL; Estimated Glomerular Filt Rate > 60; Glucose Fasting 104 mg/dL (60-99); HDL Cholesterol 43 mg/dL; LDL Cholesterol Calculated 57 mg/dl; Potassium 4.7 mmol/L (3.3-5.1); Sodium 136 mmol/L (135-145); Total Protein 7.3 g/dL (6.5-8.0); Triglycerides 255 mg/dL
[2021-11-02 08:24] LABS: Vitamin D 25-OH Total 20.3 ng/mL (>30)
[2021-11-02 10:34] LABS: Folate 13.8 ng/mL (> or = 4.0); Vitamin B12 268 pg/mL (200-900)
== END ==
LOC: HO.CARD 07:05
PROVIDERS: PCP Internal Medicine; Visit Provider Internal Medicine
DX: Z00.00 Encounter for general adult medical examination without abnormal findings (principal); R42 Dizziness and giddiness; R00.1 Bradycardia, unspecified; R53.82 Chronic fatigue, unspecified; R73.09 Other abnormal glucose; N92.1 Excessive and frequent menstruation with irregular cycle; E78.5 Hyperlipidemia, unspecified; J45.30 Mild persistent asthma, uncomplicated
CPT/HCPCS: 36415; 80053; 80061; 82306; 82607; 82746; 84443; 85025; 93005

== ENCOUNTER 2023-07-23 17:14 | Outpatient (AMB) | payer OTHER, SELFPAY ==
[2023-07-23 17:21] VITALS: BP 128/72; BMI 30.1
--- NOTE | 2023-07-23 17:21 | A.OFFPC_ITS ---
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 by: Self / Same As Patient Allergies No Known Allergies [No Known Allergies*] Allergy (Verified 07/23/23 17:27) Medication List - Last Reconciled 07/23/23 by Micheline Meadows MD albuterol sulfate 90 mcg/actuation 2 puffs inhalation Q4-6H PRN bupropion HCl XL 150 mg PO QAM 90 days Tobacco use date assessed: 07/23/23 Dental Screening Dental Screen Date: 07/23/23 Did you have a dental visit in the last 12 months?: Yes Did you have a dental problem in the last 6 months where you did not have access to dental care?: No Was dental information given to patient?: Patient has dentist HPI HPI Comments History of Present Illness Details This is a 37-year-old female with mild asthma and mood disorder that comes today for follow-up on her conditions. She use rescue inhaler less than o nce a month. Mood disorder stable with bupropion. Denies any chest pain or shortness of breath. Last Pap smear was 2019 and will be [facility] Medical History (Updated 07/23/23 @ 17:37 by Micheline Meadows MD) Menometrorrhagia Physical exam Mood disorder Elevated random blood glucose level No history of retinopathy in past year Allergic rhinitis Mild asthma COVID-19 Vertigo Surgical History Previous section Family History Mother Essential hypertension Father No problems noted. Social History Housing: Apartment Alcohol intake: current Alcohol intake frequency: holidays/special occasions only Alcohol type: beer and hard liquor Patient Tobacco Use Status: Former Tobacco user Tobacco use type: Cigarette e-Cigarette/Vaping Use: Never Used Second Hand Smoke Exposure: No service: No Current occupational status: unemployed Cognitive needs: No Hearing needs: No Vision needs: No Questionnaire PHQ-9 Over the last 2 weeks, how often have you been bothered by any of the following problems? 1. Little interest or pleasure in doing things: not at all 2. Feeling down, depressed, or hopeless: not at all 3. Trouble falling or staying asleep, or sleeping too much: not at all 4. Feeling tired or having little energy: not at all 5. Poor appetite or overeating: not at all 6. Feeling bad about yourself - or that you are a failure or have let yourself or your family down: not at all 7. Trouble concentrating on things, such as reading the newspaper or watching television: not at all 8. Moving or speaking so slowly that other people could have noticed. Or the opposite - being so fidgety or restless that you have been moving around a lot more than usual: not at all 9. Thoughts that you would be better off or of hurting yourself in some way: not at all Total score: 0 Depression Screening Interpretation: Negative Depression Screening Done: Yes 21601 - PHQ-9 Billing: Yes Source: Developed by Drs. Saw Lind, Livia Raza, Luciano Peters and colleagues, with an educational barbara from [employer]. Thrive Questionnaire Date Thrive assessed: 07/23/23 I am a: Patient What is your living situation today?: I have a steady place to live Within the past 12 months, did the food you bought not last and you didn't have the money to get more?: Never true Within the past 12 months, did you worry whether your food would run out before you got money to buy more?: Never true Do you have trouble paying for medicines?: No Do you have trouble getting transportation to medical appointments?: No Do you have trouble paying your heating and electricity bill?: No Do you have trouble taking care of your child, family member or friend?: No Do you have trouble with day-to-day activities such as bathing, preparing meals, shopping, managing finances, etc.?: No Are you currently unemployed and looking for a job?: No Are you interested in more education?: No Please select the resources that you would like help with: None Currently or been in a relationship where the following occur: no concerns reported THRIVE Score: 0 AUDIT C Alcohol Use Questionnaire (AUDIT-C) 1. How often do you have a drink containing alcohol?: Monthly or less 2. How many drinks containing alcohol do you have on a typical day when you are drinking?: 1 or 2 3. How often do you have six or more drinks on one occasion?: Never Total Score: 1 WANDY-7 AMB Questionnaire WANDY-7 Date WANDY - 7 assessed: 07/23/23 Feeling nervous, anxious, or on edge: 1 = Several days Not being able to stop or control worryin = Not at all Worrying too much about different things: 0 = Not at all Trouble relaxin = Not at all Being so restless that it is hard to sit still: 1 = Several days Becoming easily annoyed or irritable: 1 = Several days Feeling afraid as if something awful might happen: 0 = Not at all Total WANDY-7 score (0-4 normal; 5-9 mild; 10-14 moderate; 15-21 severe): 3 Source: Developed by Drs. Saw Lind, Livia Raza, Luciano Peters and colleagues, with an educational barbara from [employer]. WANDY-7 Assessment Billing WANDY-7 Assessment Tool: WANDY-7 Assessment 51637 Review of Systems Const All systems reviewed & are unremarkable except as noted in HPI and below Eyes Reports no additional complaints, Denies change in vision and Denies other visual disturbances Card Denies chest pain at rest, Denies chest pain with activity, Denies edema, Denies irregular heart rhythm, Denies claudication, Denies dyspnea, Denies dyspnea on exertion, Denies orthopnea, Denies paroxysmal nocturnal dyspnea and Denies slow heart rate Resp Denies cough, Denies dyspnea and Denies dyspnea on exertion Physical exam (Primary Care) Vital Signs: Last Vital Signs BP 128/72 07/23/23 17:21 BMI result Body Mass Index 30.1 Tobacco/Smoking Status: Tobacco use Status Tobacco use date assessed 07/23/23 07/23/23 17:26 Patient Tobacco Use Status Former Tobacco user 07/23/23 17:26 Tobacco use type Cigarette 07/23/23 17:26 e-Cigarette/Vaping Use Never Used 07/23/23 17:26 PHQ-9: PHQ-9 Score PHQ-9: Total score 0 07/23/23 17:32 Depression Screening Interpretation: Negative Thrive Assessment: Date of Thrive Assessment Date Thrive assessed 07/23/23 07/23/23 17:26 Currently or been in a relationship where the following occur: no concerns reported Resp Effort & Inspection: normal respiratory effort Auscultation: clear to auscultation bilaterally Cardio Jugular venous distension: no JVD Rate: regular rate Rhythm: regular rhythm Heart sounds: S1 normal heart sound present and S2 normal heart sound present Extrem General: Yes full ROM Psych Appearance: grossly normal Assessment and Plan Assessment & Plan (1) Mood disorder: Code(s): F39 - Unspecified mood [affective] disorder Plan: Continue Wellbutrin. (2) Mild asthma: Code(s): J45.909 - Unspecified asthma, uncomplicated Qualifiers: Asthma persistence: persistent Asthma complication type: uncomplicated Qualified Code(s): J45.30 - Mild persistent asthma, uncomplicated Plan: Use rescue inhaler as needed. Orders: Orders Complete Blood Count Auto Diff 4 Months R53.82 - Chronic fatigue, unspecified Thyroid Stimulating Hormone 4 Months R53.82 - Chronic fatigue, unspecified Vitamin B12 and Folate 4 Months R53.82 - Chronic fatigue, unspecified Lipid Panel 4 Months E66.9 - Obesity, unspecified Vitamin D 25-OH Total 4 Months E55.9 - Vitamin D deficiency, unspecified Comprehensive [place]. 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
== END 2023-07-23 17:36 | disposition home or self-care (01) ==
PROVIDERS: PCP Internal Medicine; Visit Provider Internal Medicine
DX: F39 Unspecified mood [affective] disorder (principal); J45.30 Mild persistent asthma, uncomplicated
CPT/HCPCS: 99213

== ENCOUNTER 2023-08-13 09:10 | Outpatient (REF) | payer OTHER, SELFPAY ==
[2023-08-14 11:42] LABS: CT PCR NOT DETECTED (Not Detect.); NG PCR NOT DETECTED (Not Detect.)
[2023-08-14 13:36] LABS: BV Int Neg Control Negative (Negative); BV Int Pos Control Positive (Positive)
[2023-08-15 23:18] LABS: HPV mRNA E6/E7 rflx Not Detected (Not Detected)
== END 2023-08-13 09:11 | disposition home or self-care (01) ==
LOC: HO.LNP 09:10
PROVIDERS: PCP Internal Medicine; Visit Provider Advanced Practice Midwife
DX: Z12.4 Encounter for screening for malignant neoplasm of cervix (principal); Z11.51 Encounter for screening for human papillomavirus (HPV); Z11.3 Encounter for screening for infections with a predominantly sexual mode of transmission; Z20.2 Contact with and (suspected) exposure to infections with a predominantly sexual mode of transmission
CPT/HCPCS: 0353U; 87480; 87510; 87624; 87660; 88142; 99385

== ENCOUNTER 2023-08-13 09:10 | Outpatient (AMB) | payer OTHER, SELFPAY ==
[2023-08-13 09:15] VITALS: BP 110/66; BMI 30.1
--- NOTE | 2023-08-13 09:15 | A.OFFVIS_ITS ---
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 Intake Note: Heavy menses and a lot of blood clots Brick Tester Required: Yes Brick Tester Language: Bermudian Information Interpreted: non-clinical & clinical Supervisor Concrete Stone Finishing: Supervisor Concrete Stone Finishing Present ([place]) Allergies No Known Allergies [No Known Allergies*] Allergy (Verified 08/13/23 09:18) Medication List - Last Reconciled 08/13/23 by Kylee Santoyo CNM albuterol sulfate 90 mcg/actuation 2 puffs inhalation Q4-6H PRN bupropion HCl XL 150 mg PO QAM 90 days Is last menstrual period known: Yes Last menstrual period: 08/03/23 Post menopausal: No HPI HPI 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 We will be scheduling her annual with her primary soon and will be getting blood work before that visit. She has a 17-year-old and a 14-year-old and she had her tubes tied after of the last child in [place]. 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 [facility] Medical History (Updated 08/13/23 @ 09:55 by Kylee Santoyo CNM) Menometrorrhagia Physical exam Mood disorder Elevated random blood glucose level No history of retinopathy in past year Allergic rhinitis Mild asthma COVID-19 Vertigo Surgical History (Updated 08/13/23 @ 09:20 by PETRONA Cook) Hx of tubal ligation Previous section Family History Mother Essential hypertension Father No problems noted. Social History Housing: Apartment Alcohol intake: current Alcohol intake frequency: holidays/special occasions only Alcohol type: beer and hard liquor Patient Tobacco Use Status: Former Tobacco user Tobacco use type: Cigarette e-Cigarette/Vaping Use: Never Used Second Hand Smoke Exposure: No service: No Current occupational status: unemployed Cognitive needs: No Hearing needs: No Vision needs: No Female Reproductive History Menstrual Age of Menarche: 16 Duration of menses: 6-7 days Date of last menstrual period: 08/03/23 control method: other (tubal ligation) Total pregnancies: 3 Full term: 2 Number of Living Children: 2 Ab spontaneous: 1 Date of last pap smear: 09/17/18 (negative) Physical Exam Vital Signs: Last Vital Signs BP 110/66 08/13/23 09:15 BMI result Body Mass Index 30.1 Const General: healthy appearing, comfortable, no acute distress, well developed and alert Nutritional Appearance: average body habitus Orientation/consciousness: patient oriented x3 Limitations: no limitations HEENT Head: Yes normocephalic Neck Neck: Yes normal visual inspection Chest Chest palpation & inspection: normal inspection of the chest Breast/axilla inspection: normal inspection of the breasts and normal inspection of the axillae Breast/axilla palpation: normal palpation of the breasts and normal palpation of the axillae Resp Effort & Inspection: normal respiratory effort GI Inspection: Yes normal to inspection, No Abdominal wall edema and No distended Palpation (GI): Soft to palpation and nontender General: Yes bladder normal to palpation External Female Exam: normal external appearance and normal appearance of the urethra Speculum Exam - Vagina: normal appearance of the vagina, normal palpation and normal vaginal discharge Speculum Exam - Cervix: normal appearance of the cervix, normal palpation and nontender Bimanual exam- vagina & uterus: normal bimanual exam, normal palpation, uterine size normal, bladder normal to palpation, consistency normal, normal palpation, uterine mobility normal, uterine shape normal, No Cervical tenderness present, non-tender and no cervical motion tenderness Bimanual Exam- Adnexa, other: normal adnexae, no masses, normal and No adnexal tenderness Neuro General: patient oriented x3 Assessment & Plan Assessment & Plan (1) Screening for cervical cancer: Code(s): Z12.4 - Encounter for screening for malignant neoplasm of cervix Category: Medical (2) Encounter for screening examination for sexually transmitted disease: Code(s): Z11.3 - Encounter for screening for infections with a predominantly sexual mode of transmission Category: Medical (3) Premenopausal menorrhagia: Comment: Last 7 days, regular, getting heavier the last year Code(s): N92.4 - Excessive bleeding in the premenopausal period Category: Medical Plan -----Discussed in this visit the following: healthy balanced diet, regular and consistent exercise, getting recommended health screens, doing the best she can for her particular health concerns, kegel exercises, pap smear screening and followup recommendations, mammography screening and SBE, normal changes in cycles in her life stage--- . Discussed her increasing periods discussed starting with an ultrasound to see if there is something like fibroids there that could explain it. She has not necessarily thinking about doing anything about her periods but just wants to talk about it I did talk about various options including pills essentially contraception and limitations the method as well as a Mirena IU S which helps to thin the lining of the uterus. Discussed that there are very large fibroids then there might be other considerations and interventions. 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 We will have a tele visit or in-person visit whichever after the ultrasound to review that. I told her we would send her a letter with the Pap smear results. Orders: Orders Pap Smear Today Z12.4 - Encounter for screening for malignant neoplasm of cervix Hepatitis B Surface Antigen Today Z11.3 - Encounter for screening for infections with a predominantly sexual mode of transmission, Z12.4 - Encounter for screening for malignant neoplasm of cervix Syphilis Screen Today Z11.3 - Encounter for screening for infections with a predominantly sexual mode of transmission, Z12.4 - Encounter for screening for malignant neoplasm of cervix US pelvic and transvaginal Today N92.4 - Excessive bleeding in the premenopausal period, Z11.3 - Encounter for screening for infections with a predominantly sexual mode of transmission, Z12.4 - Encounter for screening for malignant neoplasm of cervix Bacterial Vaginosis Panel Today Z11.3 - Encounter for screening for infections with a predominantly sexual mode of transmission, Z12.4 - Encounter for screening for malignant neoplasm of cervix, Z20.2 - Contact with and (suspected) exposure to infections with a predominantly sexual mode of transmission CT NG by PCR Today Z11.3 - Encounter for screening for infections with a predominantly sexual mode of transmission, Z12.4 - Encounter for screening for m alignant neoplasm of cervix, Z20.2 - Contact with and (suspected) exposure to infections with a predominantly sexual mode of transmission Hepatitis C Antibody Today Z11.3 - Encounter for screening for infections with a predominantly sexual mode of transmission, Z12.4 - Encounter for screening for malignant neoplasm of cervix HIV Ab/Ag Today Z11.3 - Encounter for screening for infections with a predominantly sexual mode of transmission, Z12.4 - Encounter for screening for malignant neoplasm of cervix Coding Level of Care Code New Pt Prev Care 18-39yr([id number] Diagnoses Screening for cervical cancer Z12.4 Encounter for screening examination for sexually transmitted disease Z11.3 Premenopausal menorrhagia N92.4
== END 2023-08-13 10:08 | disposition home or self-care (01) ==
PROVIDERS: PCP Internal Medicine; Visit Provider Advanced Practice Midwife
DX: Z01.419 Encounter for gynecological examination (general) (routine) without abnormal findings (principal); N92.4 Excessive bleeding in the premenopausal period
CPT/HCPCS: 99385

== ENCOUNTER 2023-08-13 10:03 | Outpatient (REF) | payer OTHER, SELFPAY | END 2023-08-13 10:04 | disposition home or self-care (01) | LOC: HO.HHCL 10:03 | PROVIDERS: Visit Provider Advanced Practice Midwife | DX: Z13.89 Encounter for screening for other disorder (principal) ==

== ENCOUNTER 2023-08-13 10:08 | Outpatient (REF) | payer OTHER, SELFPAY | END 2023-08-13 10:09 | disposition home or self-care (01) | LOC: HO.HHCL 10:08 | PROVIDERS: Visit Provider Advanced Practice Midwife | DX: Z13.89 Encounter for screening for other disorder (principal) ==

== ENCOUNTER 2023-08-13 10:12 | Outpatient (REF) | payer OTHER, SELFPAY ==
[2023-08-13 13:29] LABS: HIV AB/AG Nonreactive (Nonreactive); HIV Num 1 0.06 S/CO (0.00-0.99)
[2023-08-13 13:34] LABS: Syphilis Screen Nonreactive (Nonreactive)
[2023-08-13 13:39] LABS: ~HepC Num1 0.59 S/CO (0.00-0.79); ~Hepatitis C Antibody Nonreactive (Nonreactive)
== END 2023-08-13 10:13 | disposition home or self-care (01) ==
LOC: HO.HHCL 10:12
PROVIDERS: Nurse Practitioner Family; Visit Provider Advanced Practice Midwife
DX: Z12.4 Encounter for screening for malignant neoplasm of cervix (principal); Z11.4 Encounter for screening for human immunodeficiency virus [HIV]; Z11.3 Encounter for screening for infections with a predominantly sexual mode of transmission
CPT/HCPCS: 36415; 86780; 86803; 87389

== ENCOUNTER 2023-08-21 13:55 | Outpatient (REF) | payer OTHER, SELFPAY ==
--- NOTE | ~2023-08-21 | US_ITS ---
EXAMINATION: US PELVIS CLINICAL INFORMATION: Excessive menstrual bleeding; the last menstrual period was on 08/03/2023. COMPARISON: None available. TECHNIQUE: Ultrasound of the pelvis is performed using both transabdominal and transvaginal transducers along with Doppler. Transvaginal imaging is performed due to inadequate visualization transabdominally. FINDINGS: Uterus: The uterus is anteverted and anteflexed. The uterus measures 9.2 x 4.5 x 4.6 cm. The double wall endometrial thickness is 3 mm. The uterus is smooth in contour and has normal myometrial echogenicity. No visible fibroid. Nabothian cysts are seen within the cervix. There is ill-defined cervical heterogeneous echotexture, with a calcification noted. Adnexa: Both ovaries are visualized. There is normal color flow to the adnexa. There is no ovarian torsion. There is a small amount of free fluid in the cul-de-sac. Right ovary measures 4.0 x 2.3 x 2.4 cm, volume 11.5 mL. The left ovary contains a 1.5 cm benign, physiologic follicle, for which no imaging follow-up is recommended. Left ovary measures 2.5 x 1.9 x 2.0 cm, volume 5.0 mL. US/US pelvic and transvaginal IMPRESSION: 1. There is an ill-defined heterogeneously hypoechoic focus within the cervix, with calcifications. Gynecology evaluation and management is recommended, including correlation with physical findings and patient's most recent Pap smear. 2. There is a small amount of nonspecific free fluid in the cul-de-sac.
== END 2023-08-21 13:56 | disposition home or self-care (01) ==
LOC: HO.US 13:55
PROVIDERS: PCP Internal Medicine; Visit Provider Advanced Practice Midwife
DX: Z11.3 Encounter for screening for infections with a predominantly sexual mode of transmission (principal); Z12.4 Encounter for screening for malignant neoplasm of cervix; N92.4 Excessive bleeding in the premenopausal period
CPT/HCPCS: 76830; 76856

== ENCOUNTER 2023-09-04 12:57 | Outpatient (AMB) | payer OTHER, SELFPAY ==
--- NOTE | 2023-09-04 13:02 | MHC.OFFVIS ---
Vital Signs 09/04/23 13:03 Height 5 ft 7 in Weight 190 lb BMI 29.8 BP 110/70 Intake Visit Reasons: Ultra sound follow up Information Interpreted: clinical only Solar Site Assessment Specialist: Solar Site Assessment Specialist Present Allergies No Known Allergies [No Known Allergies*] Allergy (Verified 09/04/23 13:04) Medication List - Last Reconciled 09/04/23 by Kylee Santoyo CNM albuterol sulfate 90 mcg/actuation 2 puffs inhalation Q4-6H PRN bupropion HCl XL 150 mg PO QAM 90 days Is last menstrual period known: Yes Last menstrual period: 08/03/23 HPI HPI Ultra sound follow up: Details: Patient is here to follow-up on her ultrasound which was done because her periods were getting heavier and cramp ear over the last year. She has had a tubal ligation so she does not need another method of control.. Her last menstrual period was August 02. She expected this. To come on the but she has been under a lot of stress with her 17-year-old son but things are getting a little bit better now so now that she is come she is expecting her period to come. [facility] Medical History Menometrorrhagia Physical exam Mood disorder Elevated random blood glucose level No history of retinopathy in past year Allergic rhinitis Mild asthma COVID-19 Vertigo Surgical History Hx of tubal ligation Previous section Family History Mother Essential hypertension Father No problems noted. Social History Housing: Apartment Alcohol intake: current Alcohol intake frequency: holidays/special occasions only Alcohol type: beer and hard liquor Patient Tobacco Use Status: Former Tobacco user Tobacco use type: Cigarette e-Cigarette/Vaping Use: Never Used Second Hand Smoke Exposure: No service: No Current occupational status: unemployed Cognitive needs: No Hearing needs: No Vision needs: No Female Reproductive History Menstrual Age of Menarche: 16 Duration of menses: 3-5 days Date of last menstrual period: 08/03/23 control method: permanent sterilization Total pregnancies: 3 Full term: 2 Date of last pap smear: 08/14/23 (negative,previous pap ,08/14/23 neg.) History of abnormal pap smear: No Physical Exam Vital Signs: Last Vital Signs BP 110/70 09/04/23 13:03 BMI result Body Mass Index 29.8 Results Reviewed Results Reviewed: Name: Judson Gr Age/Sex: 37/F Attending: Kylee Santoyo CNM : 1985 Submitted by: Kylee Santoyo CNM Copies to: Micheline Kingston MD MR #: [id number] Status: DEP REF Collected: 08/13/23 Location: [facility] Received: 08/14/23 Interpretation Satisfactory for evaluation. Negative for intraepithelial lesion or malignancy. Moderate inflammation. HPV mRNA E6/E7: NOT DETECTED This assay detects E6/E7 viral messenger RNA (mRNA) from 14 high-risk HPV types (16, 18, 31, 33, 35, 39, 45, 51, 52, 56, 58, 59, 66, 68) HPV testing performed by [facility] [employer], [place]. See reference laboratory portion of the EMR for entire report. Clinical Information LMP: 07/24/20 Previous PAP test: 09/17/18, WNL Material Received ThinPrep-Cervical Copies To Kylee Santoyo CNM [address] [place] [address] Dr. Nichole [address] [id number] Micheline Kingston MD [address] [place] [address] Dr. [address]ole [address] [id number] Electronically Signed By: Laisha Hernandez 09/01/23 8942 The Pap Test is a screening procedure with the inherent possibility of both false negative and false positive results. Results should be interpreted in the context of historic and current clinical findings. Reliability of the Pap Test is enhanced by performing the test on a regular repetitive basis. Patient: Judson Gr Age/Sex: 37/F MR#: [id number] Page 1 of 1 [place] [address] Ultrasound Report Signed Patient: Judson Gr MR#: [id number] : 1985 Acct:[id number] Age/Sex: 37 / F ADM Date: 08/21/23 Loc: .[place] Attending Dr: Kylee Santoyo CNM Ordering Physician: Kylee Santoyo CNM Date of Service: 08/21/23 Procedure(s): US pelvic and transvaginal Accession Number(s): [id number] cc: Kylee Santoyo CNM; Micheline Kingston MD~ EXAMINATION: US PELVIS CLINICAL INFORMATION: Excessive menstrual bleeding; the last menstrual period was on 08/03/2023. COMPARISON: None available. TECHNIQUE: Ultrasound of the pelvis is performed using both transabdominal and transvaginal transducers along with Doppler. Transvaginal imaging is performed due to inadequate visualization transabdominally. FINDINGS: Uterus: The uterus is anteverted and anteflexed. The uterus measures 9.2 x 4.5 x 4.6 cm. The double wall endometrial thickness is 3 mm. The uterus is smooth in contour and has normal myometrial echogenicity. No visible fibroid. Nabothian cysts are seen within the cervix. There is ill-defined cervical heterogeneous echotexture, with a calcification noted. Adnexa: Both ovaries are visualized. There is normal color flow to the adnexa. There is no ovarian torsion. There is a small amount of free fluid in the cul-de-sac. Right ovary measures 4.0 x 2.3 x 2.4 cm, volume 11.5 mL. The left ovary contains a 1.5 cm benign, physiologic follicle, for which no imaging follow-up is recommended. Left ovary measures 2.5 x 1.9 x 2.0 cm, volume 5.0 mL. US/US pelvic and transvaginal IMPRESSION: 1. There is an ill-defined heterogeneously hypoechoic focus within the cervix, with calcifications. Gynecology evaluation and management is recommended, including correlation with physical findings and patient's most recent Pap smear. 2. There is a small amount of nonspecific free fluid in the cul-de-sac. Assessment & Plan Assessment & Plan (1) Premenopausal menorrhagia: Comment: Last 7 days, regular, getting heavier the last year Code(s): N92.4 - Excessive bleeding in the premenopausal period Category: Medical (2) Screening for cervical cancer: Comment: 08/22/2023 shows ill-defined echogenic texture of cervix correlate with Pap smear and review w patient 09/03 at f/u.; 08/13/23 Pap negative with negative HPV. Code(s): Z12.4 - Encounter for screening for malignant neoplasm of cervix Category: Medical Plan I reviewed her ultrasound in great detail the only thing of note was and ill-defined at echoic area in her cervix, and I discussed this with her and it does not correlate particularly with her menses although she said she did have a little bit of spotting that came out while she was at the ultrasound after the 1st part of the ultrasound was done and then she got up to go to the bathroom and a little bit of blood came out before the 2nd part of the ultrasound but that was all so that could have been that that was visualized on the ultrasound. Her Pap smear came back completely normal so there has no correlation with that either. I reviewed what had been discussed at the previous visit in terms of options to deal with menses that are getting heavier and cramp ear in this age range options include the Mirena IU S which is the most commonly used item as well as other methods that have another ray of side effects including Depo-Provera and progestin only OCPs I did discuss that we do not normally start with a non combination OCPs in this age range usually. She thinks she might be interested in the Mirena and we discussed placing the Mirena with the start of her next menses it is usually heavy and crampy for about 4 days of 7 problem is if she gets her period Right before this weekend it has a holiday weekend so there will be several days that would be unavailable for insertion this being said we could try again for following menses as well. I reviewed other issues she has not having any symptoms of anemia. I reviewed her negative serology testing which was all negative for STIs the only positive finding was the Gardnerella she has symptoms she did not treatment for that she is going to be seeing Dr. Rasheed in November and she will be getting her fasting blood work before that which will include a CBC so will check and be made for anemia that time as well. We will see her for insertion of Mirena and I am also ordering a follow-up ultrasound in 3 months follow-up visit after that just to make sure there is no positive findings. Orders: Orders US pelvic and transvaginal Today N92.4 - Excessive bleeding in the premenopausal period, Z12.4 - Encounter for screening for malignant neoplasm of cervix Coding Level of Care Code Est Pt Level 3 (78252) Diagnoses Premenopausal menorrhagia N92.4 Screening for cervical cancer Z12.4
[2023-09-04 13:03] VITALS: BP 110/70; BMI 29.8
== END 2023-09-04 13:40 | disposition home or self-care (01) ==
LOC: HO.HWS 12:57
PROVIDERS: PCP Internal Medicine; Visit Provider Advanced Practice Midwife
DX: N92.4 Excessive bleeding in the premenopausal period (principal); Z12.4 Encounter for screening for malignant neoplasm of cervix
CPT/HCPCS: 99213

== ENCOUNTER → 2023-09-04 12:57 | Outpatient (BNVA) | payer OTHER, SELFPAY | PROVIDERS: PCP Internal Medicine; Visit Provider Advanced Practice Midwife | DX: Z12.4 Encounter for screening for malignant neoplasm of cervix (principal); N92.4 Excessive bleeding in the premenopausal period | CPT/HCPCS: 99212 ==

== ENCOUNTER 2023-11-21 08:22 | Outpatient (REF) | payer OTHER, SELFPAY ==
[2023-11-21 08:38] LABS: MANUAL DIFF FLAG NO
[2023-11-21 09:46] LABS: Basophils Percent Auto 0.4 % (0-2); Eosinophils Absolute Auto 0.1 X10*3/uL (0.0-0.4); Eosinophils Percent Auto 1.8 % (0-4); Hematocrit 38.6 % (37.0-47.0); Hemoglobin 11.8 g/dl (12.0-16.0); Imm Gran Abs Auto 0.03 X10*3/uL (0.00-0.03); Imm Gran Pct Auto 0.4 % (0.0-0.4); Lymphocytes Absolute Auto 2.5 X10*3/uL (1.2-4.9); Lymphocytes Percent Auto 32.6 % (20-40); Mean Corpuscular HGB Conc 30.6 g/dl (31.0-35.0); Mean Corpuscular Hemoglobin 24.3 pg (27.0-33.0); Mean Corpuscular Volume 79.4 fL (80.0-98.0); Mean Platelet Volume 11.1 fL (9.4-12.3); Monocytes Absolute Auto 0.5 X10*3/uL (0.1-1.2); Neutrophils Absolute Auto 4.4 x10*3/uL (2.0-8.3); Neutrophils Percent Auto 57.8 % (45-73); Platelet Count 310 X10*3/uL (160-400); Red Blood Count 4.86 X10*6/uL (4.20-5.50); Red Cell Distribution Width 15.3 % (11.0-16.0); White Blood Count 7.6 X10*3/uL (4.8-10.8)
[2023-11-21 10:27] LABS: Alanine Aminotransferase 19 U/L (0-31); Albumin Level 4.1 g/dL (3.5-5.0); Alkaline Phosphatase 73 U/L (39-117); Anion Gap 15 (12-20); Aspartate Amino Transferase 17 U/L (5-31); Bilirubin Total 0.2 mg/dL (0.0-1.0); Blood Urea Nitrogen 7 mg/dL (9-16); Calcium 10.3 mg/dL (8.4-10.2); Carbon Dioxide 26 mmol/L (22-29); Chloride 103 mmol/L (96-108); Cholesterol 165 mg/dL (<200); Estimated Glomerular Filt Rate > 60; Glucose Fasting 114 mg/dL (60-99); HDL Cholesterol 43 mg/dL (>40); LDL Cholesterol Calculated 79 mg/dL (<100); Potassium 4.5 mmol/L (3.3-5.1); Sodium 139 mmol/L (135-145); Total Protein 7.9 g/dL (6.5-8.0); Triglycerides 217 mg/dL (<150)
[2023-11-21 10:38] LABS: HBsAGNum1 0.29 S/CO (0.00-0.99); HIV AB/AG Nonreactive (Nonreactive); HIV Num 1 0.04 S/CO (0.00-0.99); Hepatitis B Surface Antigen Negative (Negative); ~HepC Num1 0.59 S/CO (0.00-0.79); ~Hepatitis C Antibody Nonreactive (Nonreactive)
[2023-11-21 10:39] LABS: Syphilis Screen Nonreactive (Nonreactive)
[2023-11-21 10:48] LABS: Thyroid Stimulating Hormone 1.69 uIU/mL (0.32-4.0)
[2023-11-21 10:55] LABS: Folate 11.6 ng/mL (> or = 4.0); Vitamin B12 342 pg/mL (200-900)
== END 2023-11-21 08:23 | disposition home or self-care (01) ==
LOC: HO.LAB 08:22
PROVIDERS: Advanced Practice Midwife; PCP Internal Medicine; Visit Provider Internal Medicine
DX: R53.82 Chronic fatigue, unspecified (principal); E55.9 Vitamin D deficiency, unspecified; E66.9 Obesity, unspecified; Z12.4 Encounter for screening for malignant neoplasm of cervix; Z11.3 Encounter for screening for infections with a predominantly sexual mode of transmission
CPT/HCPCS: 36415; 80053; 80061; 82306; 82607; 82746; 84443; 85025; 86780; 86803; 87340; 87389

== ENCOUNTER 2023-12-04 10:35 | Outpatient (REF) | payer OTHER, SELFPAY ==
--- NOTE | ~2023-12-04 | US_ITS ---
EXAMINATION: US PELVIS CLINICAL INFORMATION: Excessive menstrual bleeding; the last menstrual period was on 11/26/2023. COMPARISON: Pelvic ultrasound dated 08/21/2023. TECHNIQUE: Ultrasound of the pelvis is performed using both transabdominal and transvaginal transducers along with Doppler. Transvaginal imaging is performed due to inadequate visualization transabdominally. FINDINGS: Uterus: The uterus is anteverted and anteflexed. The uterus measures 9.2 x 4.2 x 5.4 cm. Nabothian cyst and calcifications are seen within the cervix. The double wall endometrial thickness is 16 mm. The uterus is smooth in contour and has normal myometrial echogenicity. No visible fibroid. Adnexa: Both ovaries are visualized. There is normal color flow to the adnexa. There is no ovarian torsion. There is no pelvic ascites or fluid collection. Right ovary measures 2.9 x 1.9 x 1.9 cm, volume 5.5 mL. Left ovary measures 2.8 x 2.2 x 2.1 cm , volume 6.8 mL. US/US pelvic and transvaginal IMPRESSION: 1. The endometrial stripe thickness is top normal at 1.6 cm. 2. Nabothian cysts are seen within the cervix. Electronically signed by: Florian Valentine MD 12/17/2023 11:45 PM EDT
== END 2023-12-04 10:36 | disposition home or self-care (01) ==
LOC: HO.US 10:35
PROVIDERS: PCP Internal Medicine; Visit Provider Advanced Practice Midwife
DX: N92.4 Excessive bleeding in the premenopausal period (principal)
CPT/HCPCS: 76830; 76856

== ENCOUNTER 2023-12-13 15:38 | Outpatient (AMB) | payer OTHER, SELFPAY ==
--- NOTE | 2023-12-13 15:43 | A.OFFPC_ITS ---
Vital Signs 12/13/23 15:45 Height 5 ft 7 in Weight 191 lb BMI 29.9 BP 110/70 Blood Pressure Location Lt brachial Position Sitting Intake Visit Reasons: physical Intake Note: Patient here for a physical exam Blow Molder Required: No Accompanied by: Self / Same As Patient Allergies No Known Allergies [No Known Allergies*] Allergy (Verified 12/13/23 15:59) Medication List - Last Reconciled 12/13/23 by Micheline Meadows MD albuterol sulfate 90 mcg/actuation 2 puffs inhalation Q4-6H PRN bupropion HCl XL 150 mg PO QAM 90 days cholecalciferol (vitamin D3) 25 mcg PO DAILY 90 days Tobacco use date assessed: 07/23/23 Dental Screening Dental Screen Date: 12/13/23 Did you have a dental visit in the last 12 months?: Yes Did you have a dental problem in the last 6 months where you did not have access to dental care?: No Was dental information given to patient?: Patient has dentist HPI HPI Comments History of Present Illness Details This is a 38-year-old female that comes for her physical exam. Pap smear done 2023 was normal. I will order a mammogram. Labs were discussed and she has impaired glucose tolerance and pure hypercholesterolemia and would like to see a resource development manager. Denies any chest pain or shortness on breath. She also has mild major depression follow by counseling. [facility] Medical History (Updated 12/13/23 @ 16:35 by Micheline Meadows MD) Menometrorrhagia Physical exam Mood disorder Elevated random blood glucose level No history of retinopathy in past year Allergic rhinitis Mild asthma COVID-19 Vertigo Surgical History Hx of tubal ligation Previous section Family History Mother Essential hypertension Father No problems noted. Social History Housing: Apartment Alcohol intake: current Alcohol intake frequency: holidays/special occasions only Alcohol type: beer and hard liquor Patient Tobacco Use Status: Former Tobacco user Tobacco use type: Cigarette e-Cigarette/Vaping Use: Never Used Second Hand Smoke Exposure: No service: No Current occupational status: unemployed Cognitive needs: No Hearing needs: No Vision needs: No Female Reproductive History Menstrual Age of Menarche: 16 Questionnaire PHQ-9 Over the last 2 weeks, how often have you been bothered by any of the following problems? 1. Little interest or pleasure in doing things: not at all 2. Feeling down, depressed, or hopeless: several days 3. Trouble falling or staying asleep, or sleeping too much: several days 4. Feeling tired or having little energy: several days 5. Poor appetite or overeating: not at all 6. Feeling bad about yourself - or that you are a failure or have let yourself or your family down: several days 7. Trouble concentrating on things, such as reading the newspaper or watching television: not at all 8. Moving or speaking so slowly that other people could have noticed. Or the opposite - being so fidgety or restless that you have been moving around a lot more than usual: not at all 9. Thoughts that you would be better off or of hurting yourself in some way: not at all Total score: 4 Depression Screening Interpretation: Positive Depression Screening Follow-up: Existing condition, In treatment, Community Mental Health Worker F/U and Follow- up Visit Requested Depression Screening Done: Yes 05596 - PHQ-9 Billing: Yes Source: Developed by Drs. Saw Lind, Livia Raza, Luciano Peters and colleagues, with an educational barbara from [employer]. Thrive Questionnaire Date Thrive assessed: 12/13/23 I am a: Patient What is your living situation today?: I have a steady place to live Within the past 12 months, did the food you bought not last and you didn't have the money to get more?: Never true Within the past 12 months, did you worry whether your food would run out before you got money to buy more?: Never true Do you have trouble paying for medicines?: I choose not to answer this question Do you have trouble getting transportation to medical appointments?: No Do you have trouble paying your heating and electricity bill?: I choose not to answer this question Do you have trouble taking care of your child, family member or friend?: No Do you have trouble with day-to-day activities such as bathing, preparing meals, shopping, managing finances, etc.?: No Are you currently unemployed and looking for a job?: No Are you interested in more education?: Yes Please select the resources that you would like help with: Food and Education Currently or been in a relationship where the following occur: No concerns reported THRIVE Score: 0 AUDIT C Alcohol Use Questionnaire (AUDIT-C) 1. How often do you have a drink containing alcohol?: Monthly or less 2. How many drinks containing alcohol do you have on a typical day when you are drinking?: 1 or 2 3. How often do you have six or more drinks on one occasion?: Never Total Score: 1 Score Reviewed/Action Taken: No WANDY-7 AMB Questionnaire WANDY-7 Date WANDY - 7 assessed: 12/13/23 Feeling nervous, anxious, or on edge: 1 = Several days Not being able to stop or control worryin = Several days Worrying too much about different things: 1 = Several days Trouble relaxin = Several days Being so restless that it is hard to sit still: 1 = Several days Becoming easily annoyed or irritable: 2 = More than half the days Feeling afraid as if something awful might happen: 1 = Several days Total WANDY-7 score (0-4 normal; 5-9 mild; 10-14 moderate; 15-21 severe): 8 Source: Developed by Drs. Saw Lind, Livia Raza, Luciano Peters and colleagues, with an educational barbara from [employer]. WANDY-7 Assessment Billing WANDY-7 Assessment Tool: WANDY-7 Assessment 95521 Review of Systems Const All systems reviewed & are unremarkable except as noted in HPI and below Card Denies chest pain at rest, Denies chest pain with activity, Denies edema, Denies irregular heart rhythm, Denies claudication, Denies dyspnea, Denies dyspnea on exertion, Denies orthopnea, Denies paroxysmal nocturnal dyspnea and Denies slow heart rate Resp Denies cough, Denies dyspnea and Denies dyspnea on exertion GI Denies abdominal pain, Denies change in bowel habits, Denies excessive flatus, Denies nausea and Denies vomiting Physical exam (Primary Care) Vital Signs: Last Vital Signs BP 110/70 12/13/23 15:45 BMI result Body Mass Index 29.9 BMI Assessment/Plan discussion: High BMI High, discussed plan: lifestyle, weight reduction, dietary and physical activity Tobacco/Smoking Status: Tobacco use Status Tobacco use date assessed 07/23/23 12/13/23 15:48 Patient Tobacco Use Status Former Tobacco user 12/13/23 15:48 Tobacco use type Cigarette 12/13/23 15:48 e-Cigarette/Vaping Use Never Used 12/13/23 15:48 PHQ-9: PHQ-9 Score PHQ-9: Total score 4 12/13/23 16:03 Depression Screening Interpretation: Positive Depression Screening Follow-up: Existing condition, In treatment, Community Mental Health Worker F/U and Follow- up Visit Requested Thrive Assessment: Date of Thrive Assessment Date Thrive assessed 12/13/23 12/13/23 15:48 Currently or been in a relationship where the following occur: No concerns reported HENMT Head: Yes normal to inspection, Yes normocephalic and Yes atraumatic Ears: external ears normal Eyes General: appearance normal, both eyes and all related structures Eyelids: Yes eyelids normal Conjunctivae: conjunctivae normal Neck Neck: Yes normal visual inspection and Yes supple Resp Effort & Inspection: normal respiratory effort Auscultation: clear to auscultation bilaterally Cardio Jugular venous distension: no JVD Rate: regular rate Rhythm: regular rhythm Heart sounds: S1 normal heart sound present and S2 normal heart sound present GI Inspection: Yes normal to inspection Palpation (GI): Soft to palpation and nontender Auscultation: normal bowel sounds Skin General skin exam: no rashes or lesions noted Neuro General: no focal motor deficits Extrem General: Yes full ROM Psych Appearance: grossly normal Assessment and Plan Assessment & Plan (1) Physical exam: Code(s): Z00.00 - Encounter for general adult medical examination without abnormal findings Plan: Repeat in a year. (2) Mild major depression: Code(s): F32.0 - Major depressive disorder, single episode, mild Plan: Continue bupropion. Follow-up with counseling. (3) Impaired glucose tolerance: Code(s): R73.02 - Impaired glucose tolerance (oral) Plan: Start a low-carbohydrate diet. Referred to nutrition is. (4) Pure hypercholesterolemia: Code(s): E78.00 - Pure hypercholesterolemia, unspecified Plan: Referred to resource development manager. Orders: Orders MM screening mammo BI Today Z12.31 - Encounter for screening mammogram for malignant neoplasm of breast Referrals Information Engineer Nutrition Referral E78.00 - Pure hypercholesterolemia, unspecified, R73.02 - Impaired glucose tolerance (oral) Coding Level of Care Code Est Pt Level 3 (61361) Est Pt Prev Care 40-64y(22780) Diagnoses Physical exam Z00.00 Mild major depression F32.0 Impaired glucose tolerance R73.02 Pure hypercholesterolemia E78.00 Additional Codes WANDY-7 Assessment Billing - WANDY-7 Assessment Tool: WANDY-7 Assessment 10664 ([id number]) Time Spent (min) 33
[2023-12-13 15:45] VITALS: BP 110/70; BMI 29.9
== END 2023-12-13 16:09 | disposition home or self-care (01) ==
PROVIDERS: PCP Internal Medicine; Visit Provider Internal Medicine
DX: Z00.00 Encounter for general adult medical examination without abnormal findings (principal); F32.0 Major depressive disorder, single episode, mild; R73.02 Impaired glucose tolerance (oral); E78.00 Pure hypercholesterolemia, unspecified
CPT/HCPCS: 99396

== ENCOUNTER 2024-01-04 11:23 | Outpatient (AMB) | payer OTHER, SELFPAY ==
[2024-01-04 11:25] VITALS: BP 122/74; BMI 28.8
--- NOTE | 2024-01-04 11:25 | A.OFFVIS_ITS ---
Vital Signs 01/04/24 11:25 Height 5 ft 7 in Weight 184 lb BMI 28.8 BP 122/74 Intake Visit Reasons: US follow up Interior Decorator Paperhanging Required: Yes Interior Decorator Paperhanging Language: Egyptian Information Interpreted: non-clinical & clinical Accompanied by: Self / Same As Patient Allergies No Known Allergies [No Known Allergies*] Allergy (Verified 01/04/24 11:28) Medication List - Last Reconciled 01/04/24 by Kylee Santoyo CNM albuterol sulfate 90 mcg/actuation 2 puffs inhalation Q4-6H PRN bupropion HCl XL 150 mg PO QAM 90 days cholecalciferol (vitamin D3) 25 mcg PO DAILY 90 days Is last menstrual period known: Yes Last menstrual period: 12/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 She was having heavy periods. A 1st ultrasound showed some echogenic material in her cervix that could not be explained so follow-up ultrasound was ordered previous discussion has taken place about the possible usefulness of a Mirena IU S to ameliorate her heavy periods the 1st ultrasound showed a 3 mm lining this large recent ultrasound shows 1 that is 13 mm but was consistent with the menstrual phase. The ultrasound was done on the 03 of December and she got a light. On December 22. 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 [facility] Medical History Menometrorrhagia Physical exam Mood disorder Elevated random blood glucose level No history of retinopathy in past year Allergic rhinitis Mild asthma COVID-19 Vertigo Surgical History Hx of tubal ligation Previous section Family History Mother Essential hypertension Father No problems noted. 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 [employer] Sexual orientation: Straight/Heterosexual Gender identity: Female Cognitive needs: No Hearing needs: No Vision needs: No Female Reproductive History Menstrual Age of Menarche: 16 Date of last menstrual period: 12/23/23 (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, 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, PL[employer] 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/23 x3 days ,) control method: permanent sterilization Physical Exam Vital Signs: Last Vital Signs BP 122/74 01/04/24 11:25 BMI result Body Mass Index 28.8 Results Reviewed Results Reviewed: Patient: Judson Gr MR#: [id number] : 1985 Acct:[id number] Age/Sex: 38 / F ADM Date: 12/04/23 Loc: HO.US Attending Dr: Kylee Santoyo CNM Ordering Physician: Kylee Santoyo CNM Date of Service: 12/04/23 Procedure(s): US pelvic and transvaginal Accession Number(s): [id number] cc: Kylee Santoyo CNM; Micheline Kingston MD~ EXAMINATION: US PELVIS CLINICAL INFORMATION: Excessive menstrual bleeding; the last menstrual period was on 11/26/2023. COMPARISON: Pelvic ultrasound dated 08/21/2023. TECHNIQUE: Ultrasound of the pelvis is performed using both transabdominal and transvaginal transducers along with Doppler. Transvaginal imaging is performed due to inadequate visualization transabdominally. FINDINGS: Uterus: The uterus is anteverted and anteflexed. The uterus measures 9.2 x 4.2 x 5.4 cm. Nabothian cyst and calcifications are seen within the cervix. The double wall endometrial thickness is 16 mm. The uterus is smooth in contour and has normal myometrial echogenicity. No visible fibroid. Adnexa: Both ovaries are visualized. There is normal color flow to the adnexa. There is no ovarian torsion. There is no pelvic ascites or fluid collection. Right ovary measures 2.9 x 1.9 x 1.9 cm, volume 5.5 mL. Left ovary measures 2.8 x 2.2 x 2.1 cm , volume 6.8 mL. US/US pelvic and transvaginal IMPRESSION: 1. The endometrial stripe thickness is top normal at 1.6 cm. 2. Nabothian cysts are seen within the cervix. Electronically signed by: Florian Valentine MD 12/17/2023 11:45 PM EDT RP Workstation: [id number] Dictated By: Florian Valentine MD Signed By: <Electronically signed by Florian Valentine MD in OV> 12/17/23 2345 DD/ 1046 TD/TT: 12/04/23 1103 Integrated Specialist: MILI Patient: Judson Gr MR#: [id number] : 1985 Acct:[id number] Age/Sex: 37 / F ADM Date: 08/21/23 Loc: .US Attending Dr: Kylee Santoyo CNM Ordering Physician: Kylee Santoyo CNM Date of Service: 08/21/23 Procedure(s): US pelvic and transvaginal Accession Number(s): [id number] cc: Kylee Santoyo CNM; Micheline Kingston MD~ EXAMINATION: US PELVIS CLINICAL INFORMATION: Excessive menstrual bleeding; the last menstrual period was on 08/03/2023. COMPARISON: None available. TECHNIQUE: Ultrasound of the pelvis is performed using both transabdominal and transvaginal transducers along with Doppler. Transvaginal imaging is performed due to inadequate visualization transabdominally. FINDINGS: Uterus: The uterus is anteverted and anteflexed. The uterus measures 9.2 x 4.5 x 4.6 cm. The double wall endometrial thickness is 3 mm. The uterus is smooth in contour and has normal myometrial echogenicity. No visible fibroid. Nabothian cysts are seen within the cervix. There is ill-defined cervical heterogeneous echotexture, with a calcification noted. Adnexa: Both ovaries are visualized. There is normal color flow to the adnexa. There is no ovarian torsion. There is a small amount of free fluid in the cul-de-sac. Right ovary measures 4.0 x 2.3 x 2.4 cm, volume 11.5 mL. The left ovary contains a 1.5 cm benign, physiologic follicle, for which no imaging follow-up is recommended. Left ovary measures 2.5 x 1.9 x 2.0 cm, volume 5.0 mL. US/US pelvic and transvaginal IMPRESSION: 1. There is an ill-defined heterogeneously hypoechoic focus within the cervix, with calcifications. Gynecology evaluation and management is recommended, including correlation with physical findings and patient's most recent Pap smear. 2. There is a small amount of nonspecific free fluid in the cul-de-sac. Dictated By: Florian Valentine MD Signed By: <Electronically signed by Florian Valentine MD in OV> 08/22/23 1517 Name: Judson Gr Age/Sex: 37/F Attending: Kylee Santoyo CNM : 1985 Submitted by: Kylee Santoyo CNM Copies to: Micheline Kingston MD MR #: [id number] Status: DEP REF Collected: 08/13/23 Location: [facility] Received: 08/14/23 Interpretation Satisfactory for evaluation. Negative for intraepithelial lesion or malignancy. Moderate inflammation. HPV mRNA E6/E7: NOT DETECTED This assay detects E6/E7 viral messenger RNA (mRNA) from 14 high-risk HPV types (16, 18, 31, 33, 35, 39, 45, 51, 52, 56, 58, 59, 66, 68) HPV testing performed by [facility], [place], [place]. See reference laboratory portion of the EMR for entire report. Clinical Information LMP: 07/24/20 Previous PAP test: 09/17/18, WNL Material Received ThinPrep-Cervical Copies To Kylee Santoyo CNM [address] [place] [address] [address] [place] [address] Micheline Kingston MD [address] [place] [address] [address] [place] [address] Electronically Signed By: Laisha Hernandez 09/01/23 6756 The Pap Test is a screening procedure with the inherent possibility of both false negative and false positive results. Results should be interpreted in the context of historic and current clinical findings. Reliability of the Pap Test is enhanced by performing the test on a regular repetitive basis. Patient: Judson Gr Age/Sex: 37/F MR#: [id number] Page 1 of 1 DD/ 1875 TD/TT: Integrated Specialist: MILI Assessment & Plan Assessment & Plan (1) Premenopausal menorrhagia: Comment: Last 7 days, regular, getting heavier the last year Code(s): N92.4 - Excessive bleeding in the premenopausal period Category: Medical (2) Screening for cervical cancer: Comment: 08/22/2023 shows ill-defined echogenic texture of cervix correlate with Pap smear and review w patient 09/03 at f/u.; 08/13/23 Pap negative with negative HPV. Code(s): Z12.4 - Encounter for screening for malignant neoplasm of cervix Category: Medical Plan Patient is here to review her follow-up ultrasound. She was having heavy periods. A 1st ultrasound showed some echogenic material in her cervix that could not be explained so follow-up ultrasound was ordered previous discussion has taken place about the possible usefulness of a Mirena IU S to ameliorate her heavy periods the 1st ultrasound showed a 3 mm lining this large recent ultrasound shows 1 that is 13 mm but was consistent with the menstrual phase. The ultrasound was done on the 03 of December and she got a light. On December 22. 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 Coding Level of Care Code Est Pt Level 3 (71212) Diagnoses Premenopausal menorrhagia N92.4 Screening for cervical cancer Z12.4
== END 2024-01-04 11:48 | disposition home or self-care (01) ==
PROVIDERS: PCP Internal Medicine; Visit Provider Advanced Practice Midwife
DX: N92.4 Excessive bleeding in the premenopausal period (principal); Z12.4 Encounter for screening for malignant neoplasm of cervix
CPT/HCPCS: 99213

== ENCOUNTER → 2024-01-04 11:23 | Outpatient (BNVA) | payer OTHER, SELFPAY | PROVIDERS: PCP Internal Medicine; Visit Provider Advanced Practice Midwife | DX: N92.4 Excessive bleeding in the premenopausal period (principal); Z12.4 Encounter for screening for malignant neoplasm of cervix | CPT/HCPCS: 99212 ==

== ENCOUNTER 2024-06-04 08:10 | Outpatient (AMB) | payer OTHER, SELFPAY ==
--- NOTE | 2024-06-04 08:12 | A.OFFPC_ITS ---
Vital Signs 06/04/24 08:16 Height 5 ft 7 in Weight 180 lb BMI 28.2 BP 108/70 Blood Pressure Location Lt brachial Position Sitting Intake Visit Reasons: 6 Mo visit Depression Intake Note: Patient here for a follow up Depression Meteorology Faculty Member Required: Yes Meteorology Faculty Member Language: Integration Engineer Name: Micheline Meadosw MD Information Interpreted: non-clinical & clinical Accompanied by: Self / Same As Patient Allergies No Known Allergies [No Known Allergies*] Allergy (Verified 06/04/24 08:34) Medication List - Last Reconciled 06/04/24 by Micheline Meadows MD albuterol sulfate 90 mcg/actuation 2 puffs inhalation Q4-6H PRN bupropion HCl XL 150 mg PO QAM 90 days Tobacco use date assessed: 06/04/24 Dental Screening Dental Screen Date: 06/04/24 Did you have a dental visit in the last 12 months?: Yes Did you have a dental problem in the last 6 months where you did not have access to dental care?: No Was dental information given to patient?: Patient has dentist HPI HPI Comments History of Present Illness Details The patient is a 38-year-old female presenting for prescription management and follow-up for her depression and lifestyle modification for weight management. The patient has a history of hyperlipidemia, for which she is being managed with rosuvastatin. She reports taking bupropion 150 mg once daily for Major Depressive Disorder, which she states is functioning well for her, without any side effects. Although there was a cancellation of her recent therapy session due to her therapist's personal reasons, she mentions feeling aligned and adequately managing without further therapy sessions at the moment. Also anxiety is follow by counseling. She also reports engaging in lifestyle changes and taking vitamin D supplements previously but stopped due to a vacation. She intends to resume since advised. The patient has experienced challenges with dietary management due to the necessity of preparing meals for her family, which impacts her weight loss goals. She mentioned having reduced weight from 194 pounds to 180 pounds, and with current efforts, her weight is 177 pounds. She has some impaired glucose tolerance that will be monitored. [facility] Medical History Menometrorrhagia Physical exam Mood disorder Elevated random blood glucose level No history of retinopathy in past year Allergic rhinitis Mild asthma COVID-19 Vertigo Surgical History Hx of tubal ligation Previous section Family History Mother Essential hypertension Father No problems noted. 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 1. Little interest or pleasure in doing things: not at all 2. Feeling down, depressed, or hopeless: not at all 3. Trouble falling or staying asleep, or sleeping too much: more than half the days 4. Feeling tired or having little energy: not at all 5. Poor appetite or overeating: several days 6. Feeling bad about yourself - or that you are a failure or have let yourself or your family down: not at all 7. Trouble concentrating on things, such as reading the newspaper or watching television: not at all 8. Moving or speaking so slowly that other people could have noticed. Or the opposite - being so fidgety or restless that you have been moving around a lot m ore than usual: not at all 9. Thoughts that you would be better off or of hurting yourself in some way: not at all Total score: 3 Depression Screening Interpretation: Positive Depression Screening Follow-up: Existing condition, In treatment, Community Mental Health Worker F/U and Follow- up Visit Requested Depression Screening Done: Yes 63746 - PHQ-9 Billing: Yes Source: Developed by Drs. Saw Lind, Livia Raza, Luciano Peters and colleagues, with an educational barbara from [employer]. Thrive Questionnaire Date Thrive assessed: 06/04/24 I am a: Patient What is your living situation today?: I have a steady place to live Within the past 12 months, did the food you bought not last and you didn't have the money to get more?: Never true Within the past 12 months, did you worry whether your food would run out before you got money to buy more?: Never true Do you have trouble paying for medicines?: I choose not to answer this question Do you have trouble getting transportation to medical appointments?: No Do you have trouble paying your heating and electricity bill?: I choose not to answer this question Do you have trouble taking care of your child, family member or friend?: No Do you have trouble with day-to-day activities such as bathing, preparing meals, shopping, managing finances, etc.?: No Are you currently unemployed and looking for a job?: No Are you interested in more education?: Yes Please select the resources that you would like help with: None Currently or been in a relationship where the following occur: No concerns reported THRIVE Score: 0 AUDIT C Alcohol Use Questionnaire (AUDIT-C) 1. How often do you have a drink containing alcohol?: Monthly or less 2. How many drinks containing alcohol do you have on a typical day when you are drinking?: 1 or 2 3. How often do you have six or more drinks on one occasion?: Never Total Score: 1 Score Reviewed/Action Taken: No WANDY-7 AMB Questionnaire WANDY-7 Date WANDY - 7 assessed: 06/04/24 Feeling nervous, anxious, or on edge: 0 = Not at all Not being able to stop or control worryin = Not at all Worrying too much about different things: 0 = Not at all Trouble relaxin = Not at all Being so restless that it is hard to sit still: 0 = Not at all Becoming easily annoyed or irritable: 0 = Not at all Feeling afraid as if something awful might happen: 0 = Not at all Total WANDY-7 score (0-4 normal; 5-9 mild; 10-14 moderate; 15-21 severe): 0 Source: Developed by Drs. Saw Lind, Luciano Fleming and colleagues, with an educational barbara from [employer]. WANDY-7 Assessment Billing WANDY-7 Assessment Tool: WANDY-7 Assessment 80901 Review of Systems Const All systems reviewed & are unremarkable except as noted in HPI and below Card Denies chest pain at rest, Denies chest pain with activity, Denies edema, Denies irregular heart rhythm, Denies claudication, Denies dyspnea, Denies dyspnea on exertion, Denies orthopnea, Denies paroxysmal nocturnal dyspnea and Denies slow heart rate Resp Denies cough, Denies dyspnea and Denies dyspnea on exertion GI Denies abdominal pain, Denies change in bowel habits, Denies excessive flatus, Denies nausea and Denies vomiting Physical exam (Primary Care) Vital Signs: Last Vital Signs BP 108/70 06/04/24 08:16 BMI result Body Mass Index 28.2 Tobacco/Smoking Status: Tobacco use Status Tobacco use date assessed 06/04/24 06/04/24 08:16 Patient Tobacco Use Status Former Tobacco user 06/04/24 08:16 Tobacco use type Cigarette 06/04/24 08:16 e-Cigarette/Vaping Use Never Used 06/04/24 08:16 PHQ-9: PHQ-9 Score PHQ-9: Total score 3 06/04/24 10:53 Depression Screening Interpretation: Positive Depression Screening Follow-up: Existing condition, In treatment, Community Mental Health Worker F/U and Follow- up Visit Requested Thrive Assessment: Date of Thrive Assessment Date Thrive assessed 06/04/24 06/04/24 08:16 Currently or been in a relationship where the following occur: No concerns reported Resp Effort & Inspection: normal respiratory effort Auscultation: clear to auscultation bilaterally Cardio Jugular venous distension: no JVD Rate: regular rate Rhythm: regular rhythm Heart sounds: S1 normal heart sound present and S2 normal heart sound present Extrem General: Yes full ROM Office Procedures Flu Questionnaire Does the patient have a severe egg allergy?: No Immunizations Fluarix Triv [id number] (PF) 45 mcg (15 mcg x 3)/0.5 mL IM syringe Performing Provider: Micheline Meadows MD [facility] Documented (not given) by: PETRONA Nolen on 06/04/24 08:54 Reason Not Given: Patient Refused Coding Level of Care Code Est Pt Level 4 (35449) Complex EM visit Add On G2211 Diagnoses Mild major depression F32.0 Pure hypercholesterolemia E78.00 Impaired glucose tolerance R73.02 Hypovitaminosis D E55.9 Additional Codes WANDY-7 Assessment Billing - WANDY-7 Assessment Tool: WANDY-7 Assessment 22074 ([id number]) PHQ-9 - 51720 - PHQ-9 Billing: Yes ([id number]) Time Spent (min) 21 Assessment & Plan Assessment & Plan (1) Mild major depression: Code(s): F32.0 - Major depressive disorder, single episode, mild Category: Medical (2) Pure hypercholesterolemia: Code(s): E78.00 - Pure hypercholesterolemia, unspecified Category: Medical (3) Impaired glucose tolerance: Code(s): R73.02 - Impaired glucose tolerance (oral) Category: Medical (4) Hypovitaminosis D: Code(s): E55.9 - Vitamin D deficiency, unspecified Category: Medical Plan - Continue rosuvastatin for hyperlipidemia management. - Maintain current regimen of bupropion for depression, as it is effective without side effects. - Reinforce dietary consultation for improved weight management; patient is to follow up with the transfer and pumphouse operator chief. - Conduct laboratory tests for cholesterol, glucose, and liver and renal function with follow-up after 3-months. - Recommend resuming vitamin D supplementation. - Encourage consistent scheduling with the psychologist for therapeutic follow- up as needed. Patient was informed and verbally consented to the use of an ambient scribe for clinic note documentation during this visit. I discussed with the patient the importance of continuing her medication regimen with rosuvastatin and bupropion, which she reports are effective in managing her conditions. We reviewed the plan to maintain her current weight management strategy and the importance of consulting with a transfer and pumphouse operator chief. I advised the necessity of resuming vitamin D supplementation and conducting laboratory tests to monitor her glucose and cholesterol levels. She understands the need for a follow-up with the transfer and pumphouse operator chief, and we clarified that all prescription refills are managed at her pharmacy. Follow-up appointments and the importance of periodic check-ins with her therapist were also discussed. Orders: Orders MM tomosynthesis screening BI Today Z12.31 - Encounter for screening mammogram for malignant neoplasm of breast Lipid Panel Today E78.5 - Hyperlipidemia, unspecified Comprehensive [place]. Panel Fast Today R73.02 - Impaired glucose tolerance (oral) Influenza [id number] Immunization Today Z23 - Encounter for immunization Medications: New cholecalciferol (vitamin D3) 25 mcg PO DAILY 90 caps 0RF 90 days Refilled bupropion HCl XL 150 mg PO QAM 90 tabs 1RF 90 days F39 - Unspecified mood [affective] disorder Patient Instructions: - Continue taking rosuvastatin and bupropion as prescribed. - Follow up with a transfer and pumphouse operator chief for diet guidance. - Resume taking vitamin D supplements. - Schedule and complete lab tests as discussed. - Keep upcoming appointment with the psychologist if further support is needed. - Maintain efforts in weight management and monitor for any health changes. - Contact healthcare provider if there are any significant changes in symptoms or health concerns.
[2024-06-04 08:16] VITALS: BP 108/70; BMI 28.2
== END 2024-06-04 08:50 | disposition home or self-care (01) ==
PROVIDERS: PCP Internal Medicine; Visit Provider Internal Medicine
DX: F32.0 Major depressive disorder, single episode, mild (principal); E78.00 Pure hypercholesterolemia, unspecified; R73.02 Impaired glucose tolerance (oral); E55.9 Vitamin D deficiency, unspecified; Z23 Encounter for immunization

== ENCOUNTER → 2024-06-04 08:10 | Outpatient (BNVA) | payer OTHER, SELFPAY | PROVIDERS: PCP Internal Medicine; Visit Provider Internal Medicine | DX: F32.0 Major depressive disorder, single episode, mild (principal); E78.00 Pure hypercholesterolemia, unspecified; E55.9 Vitamin D deficiency, unspecified | CPT/HCPCS: 90471; 96127; 99212 ==

== ENCOUNTER 2024-06-05 08:27 | Outpatient (REF) | payer OTHER, SELFPAY ==
[2024-06-05 10:36] LABS: Alanine Aminotransferase 17 U/L (0-31); Alkaline Phosphatase 69 U/L (39-117); Anion Gap 13 (12-20); Aspartate Amino Transferase 21 U/L (5-31); Bilirubin Total 0.3 mg/dL (0.0-1.0); Blood Urea Nitrogen 9 mg/dL (9-16); Calcium 8.7 mg/dL (8.4-10.2); Carbon Dioxide 24 mmol/L (22-29); Chloride 107 mmol/L (96-108); Cholesterol 164 mg/dL (<200); Estimated Glomerular Filt Rate > 60; Glucose Fasting 110 mg/dL (60-99); HDL Cholesterol 44 mg/dL (>40); LDL Cholesterol Calculated 78 mg/dL (<100); Potassium 4.6 mmol/L (3.3-5.1); Sodium 139 mmol/L (135-145); Total Protein 8.3 g/dL (6.5-8.0); Triglycerides 211 mg/dL (<150)
== END 2024-06-05 08:28 | disposition home or self-care (01) ==
LOC: HO.LAB 08:27
PROVIDERS: PCP Internal Medicine; Visit Provider Internal Medicine
DX: R73.02 Impaired glucose tolerance (oral) (principal); E78.5 Hyperlipidemia, unspecified
CPT/HCPCS: 36415; 80053; 80061

== ENCOUNTER 2024-07-18 15:27 | Outpatient (REF) | payer OTHER, SELFPAY | END 2024-07-18 15:28 | disposition home or self-care (01) | LOC: HO.MAMMO 15:27 | PROVIDERS: PCP Internal Medicine; Visit Provider Internal Medicine | DX: Z12.31 Encounter for screening mammogram for malignant neoplasm of breast (principal) | CPT/HCPCS: 77063; 77067 ==

== ENCOUNTER → 2024-07-18 16:15 | Outpatient (BNV) | payer OTHER, SELFPAY | PROVIDERS: PCP Internal Medicine; Visit Provider Internal Medicine | DX: Z12.31 Encounter for screening mammogram for malignant neoplasm of breast (principal) | CPT/HCPCS: 77063; 77067 ==

== ENCOUNTER 2024-08-13 09:48 | Outpatient (AMB) | payer OTHER, SELFPAY ==
--- NOTE | 2024-08-13 09:49 | A.OFFVIS_ITS ---
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: Cartoonist Special Effects Present (Kym) Accompanied by: Self / Same As Patient Allergies No Known Allergies [No Known Allergies*] Allergy (Verified 06/04/24 08:34) Medication List - Last Reconciled 08/13/24 by Kylee Santoyo CNM albuterol sulfate 90 mcg/actuation 2 puffs inhalation Q4-6H PRN bupropion HCl XL 150 mg PO QAM 90 days cholecalciferol (vitamin D3) 25 mcg PO DAILY 90 days Patient : No HPI HPI annual: Details: Patient is here for her night time babysitter annual exam she is not having any night time babysitter concerns this year at all her periods are regular and they are not of concern to her. She was told that she was prediabetic a few months ago so she has been working hard to get healthier she is going to the gym she is trying to work on her muscle tone and she is eating very well and she is making shakes with vegetables and some fruits all mixed up as a smoothie and she is hoping to avoid diabetes and improve her situation and she is feeling very very good. She has a female partner she has no worries whatsoever about infection and she declines all testing she does not need a Pap smear today. Previous ultrasounds that showed something in her cervix did not show the same at the 2nd ultrasound she has no need for any follow-up. [facility] Medical History Menometrorrhagia Physical exam Mood disorder Elevated random blood glucose level No history of retinopathy in past year Allergic rhinitis Mild asthma COVID-19 Vertigo Surgical History Hx of tubal ligation Previous section Family History Mother Essential hypertension Father No problems noted. 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 [employer] Sexual orientation: Straight/Heterosexual Gender identity: Female Cognitive needs: No Hearing needs: No Vision needs: No Female Reproductive History Menstrual Age of Menarche: 16 Duration of menses: 3-5 days Date of last menstrual period: 07/29/24 control method: permanent sterilization Total pregnancies: 3 Full term: 2 Ab spontaneous: 1 Date of last pap smear: 08/13/23 (negative ) Date of Mammogram: 07/18/24 (bi rad 1) Physical Exam Vital Signs: Last Vital Signs BP 110/72 08/13/24 09:52 BMI result Body Mass Index 28.2 Const General: healthy appearing, comfortable, no acute distress, well developed and alert Nutritional Appearance: average body habitus Orientation/consciousness: patient oriented x3 Limitations: no limitations HEENT Head: Yes normocephalic Neck Neck: Yes normal visual inspection Chest Chest palpation & inspection: normal inspection of the chest Breast/axilla inspection: normal inspection of the breasts and normal inspection of the axillae Breast/axilla palpation: normal palpation of the breasts and normal palpation of the axillae Resp Effort & Inspection: normal respiratory effort GI Inspection: Yes normal to inspection, No Abdominal wall edema and No distended Palpation (GI): Soft to palpation and nontender Other: Normal external exam vagina is pink and moist cervix multiparous pink smooth shiny with very clear healthy fertile type mucus. Cervix long close thick mobile nontender good tone with Kegel. General: Yes bladder normal to palpation External Female Exam: normal external appearance and normal appearance of the urethra Speculum Exam - Vagina: normal appearance of the vagina, normal palpation and normal vaginal discharge Speculum Exam - Cervix: normal appearance of the cervix, normal palpation and nontender Bimanual exam- vagina & uterus: normal bimanual exam, normal palpation, uterine size normal, bladder normal to palpation, consistency normal, normal palpation, uterine mobility normal, uterine shape normal, No Cervical tenderness present, non-tender and no cervical motion tenderness Bimanual Exam- Adnexa, other: normal adnexae, no masses, normal and No adnexal tenderness Neuro General: patient oriented x3 Assessment & Plan Assessment & Plan (1) Screening for cervical cancer: Comment: 08/22/2023 shows ill-defined echogenic texture of cervix correlate with Pap smear and review w patient 09/03 at f/u.; 08/13/23 Pap negative with negative HPV. Code(s): Z12.4 - Encounter for screening for malignant neoplasm of cervix Category: Medical (2) Premenopausal menorrhagia: Comment: Last 7 days, regular, getting heavier the last year. As of 08/13/24, patient reports regular menses and feels her healthier eating and exercise is improving things Code(s): N92.4 - Excessive bleeding in the premenopausal period Category: Medical (3) Impaired glucose tolerance: Comment: She has been working out and going to the gym and eating healthy and we will be following up with her primary care provider. she is feeling very good about her health changes intent on avoiding diabetes. Code(s): R73.02 - Impaired glucose tolerance (oral) Category: Medical Plan -----Discussed in this visit the following: healthy balanced diet, regular and consistent exercise, getting recommended health screens, doing the best she can for her particular health concerns, kegel exercises, pap smear screening and followup recommendations, mammography screening and SBE, normal changes in cycles in her life stage--- . She also recently had her 1st mammogram. She is doing very well by eating very well and taking care of herself she is intent on being healthier going forward as she gets older and the elevated blood sugar/pre diabetes results have also helped served to motivate her to improve, and she is doing very well and feeling good. She has no concerns about STIs she is sexually active with her female partner she has a tubal ligation her children are 15 and 18 she was aware of changes in her cycle and symptoms of ovulation and sure enough she appears to be ovulating today very healthy normal discharge consistent with this noted. Applauded patient on all her excellent self-care reviewed dietary and physical activity going forward and future symptoms of premenopausal changes to expect. RTC 1 year Coding Level of Care Code Est Pt Prev Care 40-64y(30391) Diagnoses Screening for cervical cancer Z12.4 Premenopausal menorrhagia N92.4 Impaired glucose tolerance R73.02
[2024-08-13 09:52] VITALS: BP 110/72; BMI 28.2
== END 2024-08-13 11:22 | disposition home or self-care (01) ==
LOC: HO.HWSM 09:48
PROVIDERS: PCP Internal Medicine; Visit Provider Advanced Practice Midwife
DX: Z01.419 Encounter for gynecological examination (general) (routine) without abnormal findings (principal); N92.4 Excessive bleeding in the premenopausal period; R73.02 Impaired glucose tolerance (oral)
CPT/HCPCS: 99396; 99459

== ENCOUNTER → 2024-08-13 09:48 | Outpatient (BNVA) | payer OTHER, SELFPAY | PROVIDERS: PCP Internal Medicine; Visit Provider Advanced Practice Midwife | DX: Z12.4 Encounter for screening for malignant neoplasm of cervix (principal); N92.4 Excessive bleeding in the premenopausal period; R73.02 Impaired glucose tolerance (oral) | CPT/HCPCS: 99396; 99459 ==

== ENCOUNTER 2024-09-04 21:02 | Emergency (ER) | payer OTHER, SELFPAY ==
--- NOTE | ~2024-09-04 | CT_ITS ---
CLINICAL HISTORY: dizziness CT head without contrast Comparison: None Findings: No intracranial mass, midline shift, hydrocephalus, or acute hemorrhage. There is complete opacification of the left frontal sinus, left anterior ethmoid air cells, and visualized left maxillary sinus. Asymmetric mucosal thickening present within the left nasal cavity. The bilateral mastoid air cells appear clear. No acute skull fracture. Impression: 1. No acute intracranial abnormality. No acute intracranial hemorrhage. 2. Extensive paranasal sinus disease as described above in a left ostiomeatal unit pattern of obstruction. The opacified left maxillary sinus is nonspecific but may be seen in the setting of an underlying mucocele or inverted papilloma. This document has been electronically signed by: Ritesh Stallworth MD on 09/04/2024 23:31:36
[2024-09-04 21:13] VITALS: BP 145/75; PULSE 69; RESP 14; TEMP 36.2; O2SAT 100; BMI 28.8
--- NOTE | 2024-09-04 21:18 | ECG_ITS ---
Test Reason : DIZZY Blood Pressure : */* mmHG Vent. Rate : 67 BPM Atrial Rate : 67 BPM P-R Int : 138 ms QRS Dur : 76 ms QT Int : 410 ms P-R-T Axes : -4 54 42 degrees QTcB Int : 433 ms Normal sinus rhythm Normal ECG When compared with ECG of 02-Nov-2021 07:25, No significant change was found Referred By: Generic ED Physician Electronically Signed By: Bridger Dee
[2024-09-04 21:53] LABS: Basophils Absolute Auto 0.1 X10*3/uL (0.0-0.2); Basophils Percent Auto 0.6 % (0-2); Eosinophils Absolute Auto 0.1 X10*3/uL (0.0-0.4); Eosinophils Percent Auto 1.5 % (0-4); Hematocrit 35.3 % (37.0-47.0); Hemoglobin 11.4 g/dl (12.0-16.0); Imm Gran Abs Auto 0.02 X10*3/uL (0.00-0.03); Imm Gran Pct Auto 0.2 % (0.0-0.4); Lymphocytes Absolute Auto 2.5 X10*3/uL (1.2-4.9); Lymphocytes Percent Auto 27.3 % (20-40); MANUAL DIFF FLAG NO; Mean Corpuscular HGB Conc 32.3 g/dl (31.0-35.0); Mean Corpuscular Hemoglobin 24.3 pg (27.0-33.0); Mean Corpuscular Volume 75.1 fL (80.0-98.0); Mean Platelet Volume 9.8 fL (9.4-12.3); Monocytes Absolute Auto 0.6 X10*3/uL (0.1-1.2); Monocytes Percent Auto 6.7 % (2-11); Neutrophils Absolute Auto 5.8 x10*3/uL (2.0-8.3); Neutrophils Percent Auto 63.7 % (45-73); Platelet Count 316 X10*3/uL (160-400); Red Cell Distribution Width 14.7 % (11.0-16.0); White Blood Count 9.1 X10*3/uL (4.8-10.8)
--- NOTE | 2024-09-04 22:00 | PC.NURSE ---
38 yo F presents to ED c/o +dizziness, blood glucose WNL, VSS, patient is A&Ox4, speaking in complete sentences, respirations even and unlabored, calm and cooperative, labs obtained and sent as ordered, plan for imaging, dispo pending
[2024-09-04 22:02] LABS: Glucose, Whole Blood 104 mg/dL (60-115)
--- NOTE | 2024-09-04 22:02 | ED.DIZZY ---
HPI - Dizziness General Chief Complaint: Dizziness Stated Complaint: dizziness Time Seen by Provider: 09/04/24 21:44 Source: patient, family and pinion staker Mode of arrival: ambulatory Limitations: no limitations History of Present Illness ED Provider: DR. Moseley HPI Narrative: 38-year-old female presented for evaluation of having dizziness, unsteadiness, and unbalanced while walking. No weakness, no numbness, no nausea, no vomiting, no ear complaints, no hearing issue. Reported that she gets episodes of dizziness every now and then, no clear predisposing or aggravating factors, no clear relieving factors, associated with headache mostly in the left occipital area. Related Data Previous Rx's ?Medication ?Instructions ?Recorded albuterol sulfate 90 mcg/actuation 2 puff inhalation Q4-6H PRN 06/07/23 aerosol inhaler shortness of breath or wheezing #6.7 grams bupropion HCl 150 mg 24 hr tablet, 150 mg PO QAM 90 days #90 tabs 06/04/24 extended release cholecalciferol (vitamin D3) 25 25 mcg PO DAILY 90 days #90 caps 06/04/24 mcg (1,000 unit) capsule meclizine 25 mg tablet 25 mg PO BID PRN dizziness #20 tabs 09/04/24 Allergies Allergy/AdvReac Type Severity Reaction Status Date / Time No Known Allergies Allergy Verified 09/04/24 21:16 [No Known Allergies*] Review of Systems Review of Systems: All other systems are reviewed and are negative Constitutional: Reports as per HPI and Reports no additional constitutional complaints Eyes: Reports as per HPI and Reports no additional eye complaints Reports system reviewed and no additional complaints, except as documented Cardiovascular: Reports as per HPI and Reports no additional cardiovascular complaints Respiratory: Reports as per HPI and Reports no additional respiratory complaints Gastrointestinal: Reports as per HPI and Reports no additional gastrointestinal complaints Genitourinary: Reports no additional female genitourinary complaints Musculoskeletal: Reports no additional musculoskeletal complaints Skin/Breast: Reports system reviewed and no additional complaints, except as docu Psychiatric: Reports no additional psychiatric complaints Endocrine: Reports no additional endocrine complaints Hematologic/Lymphatic: Reports no additional hematologic/lymphatic complaints Allergic/Immunologic: Reports no additional allergic/immunologic complaints Reports system reviewed and no additional complaints, except as documented and Reports Abnormal speech present [facility] Past Medical History Medical History Menometrorrhagia Physical exam Mood disorder Elevated random blood glucose level No history of retinopathy in past year Allergic rhinitis Mild asthma COVID-19 Vertigo Surgical History Hx of tubal ligation Previous section Family History Family History Mother Essential hypertension Father No problems noted. Social History Social History Housing: Apartment Unable to assess alcohol history related to: Unknown Alcohol intake: current Alcohol intake frequency: does not drink Alcohol type: beer and hard liquor Patient Tobacco Use Status: Former Tobacco user Tobacco use type: Cigarette Smoked in Last 30 Days: No e-Cigarette/Vaping Use: Never Used Second Hand Smoke Exposure: No Use of substances other than those prescribed or required for medical reasons: No Advance Directives: No Advance Directives Information Provided: No Do you have a plan to hurt others: No Plan service: No Current occupational status: employed 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 Blood pressure elevated. Heart rate normal. Respiratory rate normal. Temperature normal. Oxygen saturation normal. Appearance: Alert. Oriented X3. No acute distress. Head: Normal external exam. Normocephalic. Atraumatic. No Gaitan signs noted. No raccoon eyes noted Eyes: PERRLA. EOMI. Conjunctiva and sclera normal. Eyelids normal. ENT: TM's Normal. Pharynx normal. Uvula midline. Moist mucous membranes. No trismus noted. No drooling noted. No muffled voice noted. Neck: Normal inspection. Neck supple. FROM. No adenopathy. Thyroid Normal. No meningeal signs. No neck mass noted. CVS: Normal heart rate and rhythm. Heart sound normal. No murmurs noted. Pulses normal throughout. Respiratory: No respiratory distress. Painless inspiration. Breath sounds normal. No wheezes/rales/rhonchi noted. Chest nontender. No accessory muscle usage noted or decreased air movement noted. Abdomen: Soft and nontender. Bowel sounds normal in all 4 quadrants. No distention noted. No organomegaly noted. No visible injury noted. Back: No CVA tenderness. Full range of motion noted. Skin: Skin warm and dry. Normal skin color. Normal skin turgor. No rashes/lesions/lacerations noted. Extremities: No lower extremity edema. Extremities exhibit normal range of motion. Extremities nontender. Neuro: Mental status: Normal attention, orientation, memory, and affect. Cranial nerves: Pupils are equal, round and reactive to light, EOMI, visual stout are fall, face is symmetric, facial sensations are normal. Motor examination normal muscle tone, strength to 4 extremities. DTR are +2, planter's are flexor. Sensory exam; normal coordination, no ataxia, gait stable. Cerebellar exam: [id number] and [id number] is normal. Extrapyramidal system: No tremors, no rigidity with normal facial expressions. Pronator drift not present NIH Stroke Scale Time: 22:07 Level of Consciousness: Alert Level of Consciousness Questions: Answers both questions correctly Level of Consciousness Commands: Performs both tasks correctly Best Gaze: Normal Visual: No visual loss Facial Palsy: Normal Motor Arm (Right): No drift Motor Arm (Left): No drift Motor Leg (Right): No drift Motor Leg (Left): No drift Limb Ataxia: Absent Sensory: Normal Best Language: No aphasia Dysarthia: Normal Extinction and Inattention: No abnormality Score: 0 Course Reevaluation(s) Reevaluation #1: 38-year-old female, come in with episodes of vertigo. Patient now feels better after was given meclizine and fluids. EKG within normal limits without previous EKG changes. Otherwise normal neuro exam, and NIH score of 0. Time: 01:00 Medications Administered Discontinued Medications Generic Name Dose Route Start Last Admin Trade Name Freq PRN Reason Stop Dose Admin Lactated Ringer's 1,000 mls @ 999 mls/hr 09/04/24 22:00 09/05/24 00:27 Lr IV 09/04/24 23:00 Infused .Q1H1M KELLIE Infusion Meclizine HCl 25 mg 09/04/24 22:00 09/04/24 22:29 Meclizine Hcl 25 Mg Tablet PO 09/04/24 22:01 25 mg ONCE ONE Administration Medical Decision Making Differential Diagnosis Differential Diagnoses: The differential diagnosis associated with the presentation includes ( Intracranial bleed, intracranial hemorrhage, central vertigo, peripheral vertigo, electrolyte derangement, dehydration, orthostatic hypotension.) Admission/Observation Consideration of admission/observation: Escalation of care including admission/observation considered Lab Data MDM Lab Attestation statement: I reviewed the patient's lab results. 09/04/24 21:46 09/04/24 21:46 Labs: Lab Results 09/04/24 09/04/24 09/05/24 Range/Units 21:45 21:46 00:13 WBC 9.1 (4.8-10.8) X10*3/uL RBC 4.70 (4.20-5.50) X10*6/uL Hgb 11.4 L (12.0-16.0) g/dl Hct 35.3 L (37.0-47.0) % MCV 75.1 L (80.0-98.0) fL MCH 24.3 L (27.0-33.0) pg MCHC 32.3 (31.0-35.0) g/dl RDW 14.7 (11.0-16.0) % Plt Count 316 (160-400) X10*3/uL MPV 9.8 (9.4-12.3) fL Immature Gran % (Auto) 0.2 (0.0-0.4) % Neut % (Auto) 63.7 (45-73) % Lymph % (Auto) 27.3 (20-40) % [place] % (Auto) 6.7 (2-11) % Eos % (Auto) 1.5 (0-4) % Baso % (Auto) 0.6 (0-2) % Lymph # (Auto) 2.5 (1.2-4.9) X10*3/uL [place] # (Auto) 0.6 (0.1-1.2) X10*3/uL Eos # (Auto) 0.1 (0.0-0.4) X10*3/uL Baso # (Auto) 0.1 (0.0-0.2) X10*3/uL Abs Immat Gran (auto) 0.02 (0.00-0.03) X10*3/uL Absolute Neuts (auto) 5.8 (2.0-8.3) x10*3/uL Absolute Nucleated RBC 0.000 (0.0-0.012) X10*3/uL Nucleated RBC % (auto) 0.0 (0.0-0.2) /100WBC Sodium 140 (135-145) mmol/L Potassium 3.9 (3.3-5.1) mmol/L Chloride 106 (96-108) mmol/L Carbon Dioxide 25 (22-29) mmol/L Anion Gap 13 (12-20) BUN 10 (9-16) mg/dL Creatinine 0.67 (0.5-1.4) mg/dL Estim Creat Clear Calc 123.9 Estimated GFR > 60 POC Glucose 104 (60-115) mg/dL Random Glucose 103 (60-115) mg/dL Calcium 8.9 (8.4-10.2) mg/dL Total Bilirubin 0.1 (0.0-1.0) mg/dL AST 27 (5-31) U/L ALT 20 (0-31) U/L Alkaline Phosphatase 78 (39-117) U/L Total Protein 8.0 (6.5-8.0) g/dL Albumin 4.4 (3.5-5.0) g/dL Beta HCG, Quant < 2 mIU/mL Urine Color Yellow Urine Appearance Clear Urine pH 7.5 (5.0-9.0) Ur Specific [place] 1.015 (1.005-1.025) Urine Protein Negative (Neg-Trace) mg/dL Urine Glucose (UA) Negative (Negative) mg/dL Urine Ketones Negative (Negative) mg/dL Urine Blood Negative (Negative) Urine Nitrite Negative (Negative) Ur Leukocyte Esterase Negative (Negative) Independent Interpretation I performed an independent interpretation of an: CT Scan ( Head: No acute intracranial pathology.) Radiology Impression Discussion of test interpretation with radiology: I have reviewed the radiologist's reading. Discharge Plan Discharge Clinical Impression: Vertigo Patient Disposition: Home, Self-Care Instructions: Vertigo (ED) Prescriptions: New meclizine 25 mg tablet 25 mg PO BID PRN (Reason: dizziness) Qty: 20 0RF No Action albuterol sulfate 90 mcg/actuation HFA aerosol inhaler 2 puff inhalation Q4-6H PRN (Reason: shortness of breath or wheezing) Qty: 6.7 0RF bupropion HCl 150 mg tablet extended release 24 hr 150 mg PO QAM 90 Days Qty: 90 1RF cholecalciferol (vitamin D3) 25 mcg (1,000 unit) capsule 25 mcg PO DAILY 90 Days Qty: 90 0RF Referrals: Micheline Kingston MD [Primary Care Provider] - Print Language: [place]se
[2024-09-04 22:10] LABS: Alanine Aminotransferase 20 U/L (0-31); Albumin Level 4.4 g/dL (3.5-5.0); Alkaline Phosphatase 78 U/L (39-117); Anion Gap 13 (12-20); Aspartate Amino Transferase 27 U/L (5-31); Bilirubin Total 0.1 mg/dL (0.0-1.0); Blood Urea Nitrogen 10 mg/dL (9-16); Calcium 8.9 mg/dL (8.4-10.2); Carbon Dioxide 25 mmol/L (22-29); Chloride 106 mmol/L (96-108); Creatinine Clr Calc Pharmacy 123.9; Estimated Glomerular Filt Rate > 60; Glucose Random 103 mg/dL (60-115); Potassium 3.9 mmol/L (3.3-5.1); Sodium 140 mmol/L (135-145)
[2024-09-04 22:22] VITALS: BP 124/77; PULSE 70; PULSE 72; RESP 20; TEMP 36.6; O2SAT 98
[2024-09-04 22:23] VITALS: BP 135/74; PULSE 66
[2024-09-04 22:24] VITALS: BP 129/81; PULSE 75
[2024-09-04] MEDS: Lactated Ringers 1,000 ML 999 ML IV (22:29)
[2024-09-04] MEDS: Meclizine HCl 25 MG TABLET PO (22:29)
--- NOTE | 2024-09-04 22:31 | PC.NURSE ---
patient medicated as ordered by provider, IVF infusing, patient continues to rest comfortably on stretcher, VSS, visitor at bedside, dispo pending
[2024-09-04 23:55] LABS: HCG Quantitative < 2 mIU/mL
[2024-09-05 00:20] VITALS: BP 123/77; PULSE 76; RESP 14; TEMP 36.5; O2SAT 99
[2024-09-05 00:20] LABS: Appearance Urine Clear; Color Urine Yellow; Glucose Urine UA Negative (Negative); Leukocyte Esterase Urine Negative (Negative); Nitrite Urine Negative (Negative); PH 7.5 (5.0-9.0); Specific Gravity - Urine 1.015 (1.005-1.025); Urine Blood Negative (Negative); Urine Ketones Negative (Negative); Urine Protein Negative (Neg-Trace)
[2024-09-05 01:15] VITALS: BP 123/77; PULSE 76; RESP 14; TEMP 36.5; O2SAT 99
== END 2024-09-05 01:19 | disposition home or self-care (01) ==
PROVIDERS: Emergency Provider Emergency Medicine; PCP Internal Medicine
DX: R42 Dizziness and giddiness (principal); R26.89 Other abnormalities of gait and mobility; R29.700 NIHSS score 0; Z87.891 Personal history of nicotine dependence; Z79.899 Other long term (current) drug therapy
CPT/HCPCS: 36415; 70450; 80053; 81003; 82947; 84702; 85025; 93005; 96360; 96361; 99284; 99285; J7120

== ENCOUNTER → 2024-09-04 21:18 | Outpatient (BNV) | payer OTHER, SELFPAY | PROVIDERS: Emergency Provider Emergency Medicine; PCP Internal Medicine; Visit Provider Internal Medicine Cardiovascular Disease | DX: R42 Dizziness and giddiness (principal) | CPT/HCPCS: 93010 ==

== ENCOUNTER → 2024-09-04 22:00 | Outpatient (BNV) | payer OTHER, SELFPAY | PROVIDERS: Emergency Provider Emergency Medicine; PCP Internal Medicine; Visit Provider Radiology Diagnostic Radiology | DX: J34.89 Other specified disorders of nose and nasal sinuses (principal) | CPT/HCPCS: 70450 ==

== ENCOUNTER 2024-12-16 16:43 | Outpatient (AMB) | payer OTHER, SELFPAY ==
--- NOTE | 2024-12-16 16:46 | A.OFFPC_ITS ---
Vital Signs 12/16/24 16:47 12/16/24 16:59 Height 5 ft 7 in Weight 189 lb BMI 29.6 BP 140/70 H 138/70 Blood Pressure Location Lt brachial Lt brachial Position Sitting Sitting Respiration 18 Pulse 77 Pulse Source Pulse Oximeter Temp 97.5 F Temp Source Temporal Artery Scan Pulse Oximetry (%) 97 Oxygen Delivery Method Room Air Intake Visit Reasons: Annual Exam Long Filler Cigar Roller Machine Required: No Accompanied by: Self / Same As Patient Allergies No Known Allergies (No Known Allergies*) Allergy (Verified 12/16/24 16:59) Medication List - Last Reconciled 12/16/24 by Micheline Meadows MD albuterol sulfate 90 mcg/actuation 2 puffs inhalation Q4-6H PRN bupropion HCl XL 150 mg PO QAM 90 days cholecalciferol (vitamin D3) 25 mcg PO DAILY 90 days meclizine 25 mg PO BID PRN Tobacco use date assessed: 12/16/24 Dental Screening Dental Screen Date: 12/16/24 Did you have a dental visit in the last 12 months?: No Did you have a dental problem in the last 6 months where you did not have access to dental care?: No Was dental information given to patient?: No HPI HPI Comments History of Present Illness Details Patient is here for her physical exam. Mammogram done this year. Pap smear done last year which was negative for HPV. Denies any chest pain or shortness on breath. No fever or cough. Last Tdap vaccine was done over 10 years ago and will have Tdap vaccine today. [facility] Medical History Menometrorrhagia Physical exam Mood disorder Elevated random blood glucose level No history of retinopathy in past year Allergic rhinitis Mild asthma COVID-19 Vertigo Surgical History Hx of tubal ligation Previous section Family History Mother Essential hypertension Father No problems noted. 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 1. Little interest or pleasure in doing things: not at all 2. Feeling down, depressed, or hopeless: not at all 3. Trouble falling or staying asleep, or sleeping too much: several days 4. Feeling tired or having little energy: not at all 5. Poor appetite or overeating: not at all 6. Feeling bad about yourself - or that you are a failure or have let yourself or your family down: not at all 7. Trouble concentrating on things, such as reading the newspaper or watching television: not at all 8. Moving or speaking so slowly that other people could have noticed. Or the opposite - being so fidgety or restless that you have been moving around a lot more than usual: not at all 9. Thoughts that you would be better off or of hurting yourself in some way: not at all Total score: 1 Depression Screening Interpretation: Negative Depression Screening Done: Yes 66748 - PHQ-9 Billing: Yes Source: Developed by Drs. Saw Lind, Livia Raza, Luciano Peters and colleagues, with an educational barbara from [employer]. Thrive Questionnaire Date Thrive assessed: 12/16/24 I am a: Patient What is your living situation today?: I have a steady place to live Within the past 12 months, did the food you bought not last and you didn't have the money to get more?: Sometimes True Within the past 12 months, did you worry whether your food would run out before you got money to buy more?: Sometimes True Do you have trouble paying for medicines?: No Do you have trouble getting transportation to medical appointments?: No Do you have trouble paying your heating and electricity bill?: No Do you have trouble taking care of your child, family member or friend?: No Do you have trouble with day-to-day activities such as bathing, preparing meals, shopping, managing finances, etc.?: No Are you currently unemployed and looking for a job?: No Are you interested in more education?: I choose not to answer this question Please select the resources that you would like help with: Housing/Longterm and Food Currently or been in a relationship where the following occur: No concerns reported THRIVE Score: 2 AUDIT C Alcohol Use Questionnaire (AUDIT-C) 1. How often do you have a drink containing alcohol?: Monthly or less Total Score: 1 WANDY-7 AMB Questionnaire WANDY-7 Date WANDY - 7 assessed: 12/16/24 Feeling nervous, anxious, or on edge: 1 = Several days Not being able to stop or control worryin = Several days Worrying too much about different things: 1 = Several days Trouble relaxin = Several days Being so restless that it is hard to sit still: 1 = Several days Becoming easily annoyed or irritable: 2 = More than half the days Feeling afraid as if something awful might happen: 0 = Not at all Total WANDY-7 score (0-4 normal; 5-9 mild; 10-14 moderate; 15-21 severe): 7 Source: Developed by Drs. Saw Lind, Livia Raza, Luciano Peters and colleagues, with an educational barbara from [employer]. WANDY-7 Assessment Billing WANDY-7 Assessment Tool: WANDY-7 Assessment 56534 Review of Systems Const All systems reviewed & are unremarkable except as noted in HPI and below Card Denies chest pain at rest, Denies chest pain with activity, Denies edema, Denies irregular heart rhythm, Denies claudication, Denies dyspnea, Denies dyspnea on exertion, Denies orthopnea, Denies paroxysmal nocturnal dyspnea and Denies slow heart rate Resp Denies cough, Denies dyspnea and Denies dyspnea on exertion Neuro Denies lack of coordination Physical exam (Primary Care) Vital Signs: Last Vital Signs Temp 97.5 F 12/16/24 16:47 Pulse 77 12/16/24 16:47 Resp 18 12/16/24 16:47 BP 138/70 12/16/24 16:59 Pulse Ox 97 12/16/24 16:47 Oxygen Delivery Method Room Air 12/16/24 16:47 BMI result Body Mass Index 29.6 Tobacco/Smoking Status: Tobacco use Status Tobacco use date assessed 12/16/24 12/16/24 16:53 Patient Tobacco Use Status Former Tobacco user 12/16/24 17:05 Tobacco use type Cigarette 12/16/24 17:05 e-Cigarette/Vaping Use Never Used 12/16/24 17:05 PHQ-9: PHQ-9 Score PHQ-9: Total score 1 12/16/24 17:14 Depression Screening Interpretation: Negative Thrive Assessment: Date of Thrive Assessment Date Thrive assessed 12/16/24 12/16/24 16:53 Currently or been in a relationship where the following occur: No concerns reported HENMT Head: Yes normal to inspection, Yes normocephalic and Yes atraumatic Ears: external ears normal Eyes General: appearance normal, both eyes and all related structures Eyelids: Yes eyelids normal Conjunctivae: conjunctivae normal Neck Neck: Yes normal visual inspection and Yes supple Resp Effort & Inspection: normal respiratory effort Auscultation: clear to auscultation bilaterally Cardio Jugular venous distension: no JVD Rate: regular rate Rhythm: regular rhythm Heart sounds: S1 normal heart sound present and S2 normal heart sound present GI Inspection: Yes normal to inspection Palpation (GI): Soft to palpation and nontender Auscultation: normal bowel sounds Skin General skin exam: no rashes or lesions noted Neuro General: no focal motor deficits Extrem General: Yes full ROM Psych Appearance: grossly normal Immunizations Boostrix Tdap 2.5 Lf unit-8 mcg-5 Lf/0.5 mL intramuscular syringe Performing Provider: Micheline Meadows MD [place] [facility] Administered by: Candi Dumont CMA on 12/16/24 17:12 Dose Route Admin Location Dispensed Lot Number Expiration Date [facility] Traffic Controller Cable 0.5 mL IM Left Deltoid 0.5 mL [id number] 02/06/27 41135-332-60 [employer] Total Dispensed Waste 0.5 mL 0 % VIS Given Date VIS Provided VIS Publication Date 12/16/24 Single Vaccine 20 Eligibility Eligibility Date Funding Source Not [facility] Eligible 12/16/24 Private Coding Level of Care Code Est Pt Prev Care 40-64y(88306) Diagnoses Physical exam Z00.00 Mild major depression F32.0 Additional Codes WANDY-7 Assessment Billing - WANDY-7 Assessment Tool: WANDY-7 Assessment 39285 ([id number]) PHQ-9 - 51644 - PHQ-9 Billing: Yes ([id number]) Time Spent (min) 31 Assessment & Plan Assessment & Plan (1) Physical exam: Code(s): Z00.00 - Encounter for general adult medical examination without abnormal findings Category: Medical (2) Mild major depression: Code(s): F32.0 - Major depressive disorder, single episode, mild Category: Medical Plan Repeat physical exam in a year. Orders: Orders Lipid Panel Today E78.5 - Hyperlipidemia, unspecified TDaP Immunization Today Z23 - Encounter for immunization Vitamin D 25-OH Total Today E55.9 - Vitamin D deficiency, unspecified Comprehensive [place]. Panel Fast Today Z00.00 - Encounter for general adult medical examination without abnormal findings Complete Blood Count Auto Diff Today D64.9 - Anemia, unspecified IRON PROFILE Today D64.9 - Anemia, unspecified
[2024-12-16 16:47] VITALS: BP 140/70; PULSE 77; RESP 18; TEMP 36.4; O2SAT 97; BMI 29.6
[2024-12-16 16:59] VITALS: BP 138/70
== END 2024-12-16 17:10 | disposition home or self-care (01) ==
LOC: HO.HMCH 16:43
PROVIDERS: PCP Internal Medicine; Visit Provider Internal Medicine
DX: Z00.00 Encounter for general adult medical examination without abnormal findings (principal); F32.0 Major depressive disorder, single episode, mild; Z23 Encounter for immunization

== ENCOUNTER → 2024-12-16 16:43 | Outpatient (BNVA) | payer OTHER, SELFPAY | PROVIDERS: PCP Internal Medicine; Visit Provider Internal Medicine | DX: Z00.00 Encounter for general adult medical examination without abnormal findings (principal); F32.0 Major depressive disorder, single episode, mild; E78.5 Hyperlipidemia, unspecified; E55.9 Vitamin D deficiency, unspecified; D64.9 Anemia, unspecified; Z23 Encounter for immunization | CPT/HCPCS: 90471; 90715; 96127; 99396 ==

== ENCOUNTER 2024-12-17 07:04 | Outpatient (REF) | payer OTHER, SELFPAY ==
[2024-12-17 07:20] LABS: MANUAL DIFF FLAG NO
[2024-12-17 07:42] LABS: Hematocrit 34.9 % (37.0-47.0); Hemoglobin 11.2 g/dl (12.0-16.0); Imm Gran Abs Auto 0.02 X10*3/uL (0.00-0.03); Imm Gran Pct Auto 0.3 % (0.0-0.4); Lymphocytes Absolute Auto 2.4 X10*3/uL (1.2-4.9); Mean Corpuscular HGB Conc 32.1 g/dl (31.0-35.0); Mean Corpuscular Hemoglobin 24.6 pg (27.0-33.0); Mean Corpuscular Volume 76.7 fL (80.0-98.0); NRBC Abs Auto 0.000 X10*3/uL (0.0-0.012); NRBC Pct Auto 0.0 /100WBC (0.0-0.2); Platelet Count 271 X10*3/uL (160-400); Red Blood Count 4.55 X10*6/uL (4.20-5.50); White Blood Count 7.1 X10*3/uL (4.8-10.8)
[2024-12-17 08:27] LABS: Alanine Aminotransferase 14 U/L (0-31); Albumin Level 4.0 g/dL (3.5-5.0); Alkaline Phosphatase 69 U/L (39-117); Anion Gap 12 (12-20); Aspartate Amino Transferase 21 U/L (5-31); Blood Urea Nitrogen 10 mg/dL (9-16); Calcium 8.9 mg/dL (8.4-10.2); Carbon Dioxide 22 mmol/L (22-29); Chloride 108 mmol/L (96-108); Cholesterol 160 mg/dL (<200); Estimated Glomerular Filt Rate > 60; HDL Cholesterol 45 mg/dL (>40); Iron 35 mcg/dL (30-160); Percent Iron Saturation 9 % (15-50); Potassium 4.3 mmol/L (3.3-5.1); Sodium 138 mmol/L (135-145); Total Iron Binding Capacity 406 mcg/dL (228-428); Total Protein 7.4 g/dL (6.5-8.0); Triglycerides 191 mg/dL (<150); Unsaturated Iron Binding 371 ug/dL
== END 2024-12-17 07:05 | disposition home or self-care (01) ==
LOC: HO.LAB 07:04
PROVIDERS: PCP Internal Medicine; Visit Provider Internal Medicine
DX: Z00.00 Encounter for general adult medical examination without abnormal findings (principal); D64.9 Anemia, unspecified; E78.5 Hyperlipidemia, unspecified; E55.9 Vitamin D deficiency, unspecified
CPT/HCPCS: 36415; 80053; 80061; 82306; 83540; 85025

== ENCOUNTER 2024-12-26 14:49 | Outpatient (REF) | payer OTHER, SELFPAY ==
[2024-12-26 15:36] LABS: Resp Syncy Virus RNA Qual PCR NEGATIVE (Negative); SARS COV2 PCR INHOUSE NEGATIVE (Negative)
== END 2024-12-26 14:50 | disposition home or self-care (01) ==
LOC: HO.LAB 14:49
PROVIDERS: PCP Internal Medicine; Visit Provider Internal Medicine
DX: R09.89 Other specified symptoms and signs involving the circulatory and respiratory systems (principal); Z11.52 Encounter for screening for COVID-19
CPT/HCPCS: 87637

== ENCOUNTER 2025-03-20 18:34 | Emergency (ER) | payer MEDICAID, SELFPAY ==
[2025-03-20 18:41] VITALS: BP 151/69; PULSE 84; RESP 18; TEMP 36.6; O2SAT 99; BMI 29.5
--- NOTE | 2025-03-20 18:44 | ED.GENADULT ---
HPI - General Adult General Chief complaint: Abdominal Pain Stated complaint: Abdominal pain Time Seen by Provider: 03/20/25 23:15 Source: patient, RN notes reviewed, old records reviewed and community action worker Mode of arrival: ambulatory Limitations: language barrier History of Present Illness ED Provider: Alee BILLY narrative: 39-year-old female with a past medical history significant for hyperlipidemia, depression, vertigo presents for evaluation of abdominal pain. Patient reports epigastric abdominal pain for the last 3 days. She states her pain is present pretty much constantly. She has pain if she eats, she has been as she does not knee. She reports her pain is worse if she drinks a cold beverage. She has a history of GERD but states this feels worse. She reports previous cesareans section but no other abdominal surgeries pain Denies any fevers or chills. The pain is cramping in nature Related Data Previous Rx's ?Medication ?Instructions ?Recorded albuterol sulfate 90 mcg/actuation 2 puff inhalation Q4-6H PRN 06/07/23 aerosol inhaler shortness of breath or wheezing #6.7 grams cholecalciferol (vitamin D3) 25 25 mcg PO DAILY 90 days #90 caps 06/04/24 mcg (1,000 unit) capsule meclizine 25 mg tablet 25 mg PO BID PRN dizziness #20 tabs 09/04/24 bupropion HCl 150 mg 24 hr tablet, 150 mg PO QAM 90 days #90 tabs 01/04/25 extended release ibuprofen 400 mg tablet 400 mg PO Q6H PRN pain #30 tabs 03/04/25 omeprazole 20 mg capsule,delayed 20 mg PO DAILY #20 caps 03/20/25 release Allergies Allergy/AdvReac Type Severity Reaction Status Date / Time No Known Allergies (No Known Allergy Verified 03/20/25 18:42 Allergies*) Review of Systems Constitutional: Constitutional: Denies body ache(s), Denies chills and Denies fever(s) Eyes: Eyes: Denies exophthalmos ENT: Denies vertigo, Denies dizziness and Denies dry mouth Cardiovascular: Cardiovascular: Denies chest pain and Denies dyspnea on exertion Respiratory: Respiratory: Denies cough and Denies dyspnea on exertion Gastrointestinal: Gastrointestinal: Reports abdominal pain, Denies nausea and Denies vomiting Musculoskeletal: Musculoskeletal: Denies back pain Integumentary/Breasts: Skin/Breast: Denies rash Neurologic: Denies vertigo and Denies dizziness [facility] Past Medical History Medical History Menometrorrhagia Physical exam Mood disorder Elevated random blood glucose level No history of retinopathy in past year Allergic rhinitis Mild asthma COVID-19 Vertigo Surgical History Hx of tubal ligation Previous section Family History Family History Mother Essential hypertension Father No problems noted. 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 [employer] Sexual orientation: Straight/Heterosexual Gender identity: Female Cognitive needs: No Hearing needs: No Vision needs: No Physical Exam ED Vital Signs: Vital Signs - 24 hr 03/20/25 18:41 03/20/25 22:18 03/21/25 00:12 Temperature 97.8 F 98.0 F 98.0 F Pulse Rate 84 86 86 Respiratory Rate 18 16 16 Blood Pressure 151/69 H 143/74 H 143/74 H Pulse Oximetry 99 98 98 Oxygen Delivery Method Room Air Room Air Room Air BMI result Body Mass Index 29.5 Const General: healthy appearing, comfortable, no acute distress, alert and awake Nutritional Appearance: well nourished Orientation/consciousness: patient oriented x3 HENMT Head: Yes normocephalic and Yes atraumatic Eyes Eyelids: Yes eyelids normal Conjunctivae: conjunctivae normal Sclerae: sclerae normal Corneas: corneas normal Pupils: Equal, round and reactive pupils present EOM: EOMs intact bilaterally Neck Neck: Yes full ROM Resp Effort & Inspection: normal respiratory effort, able to speak in complete sentences and not labored Cardio Rate: regular rate Rhythm: regular rhythm GI Other: negative Lopez's sign Inspection: No distended Palpation (GI): Soft to palpation, not firm, nontender, no guarding and not rigid Auscultation: normoactive bowel sounds Skin General skin exam: elasticity normal Neuro General: patient oriented x3 Cranial nerves: Yes Equal, round and reactive pupils present and Yes Bilaterally intact EOM present Cognition (Neuro): normal cognition Extrem Other: Moving all extremities well without any obvious deformities Course Course Course Narrative: Rapid medical examination performed in triage by Tyra Briceno PA-C: Patient is a 39 year old assigned female at presenting to the emergency department with abdominal pain. Detailed physical exam and review of systems are deferred to the assistant boys track coach. Labs ordered. Patient placed back in the waiting room pending room availability and results. Medical Decision Making Medical Decision Making [facility] Narrative: 39-year-old female with a past medical history as above presents for evaluation of epigastric abdominal pain. She does reports some pain in the right upper quadrant at times. Her pain is predominantly epigastric. Her pain is the worst after drinking cold beverages. But she does have pain after eating and sometimes that she does need at all. The patient carries a diagnosis of GERD but does not take any preventative medications for it. She occasionally will use Tums or Gas-X with minimal relief. At the time my evaluation the patient has no abdominal pain, no tenderness on exam, she is quite well appearing. she has no leukocytosis or anemia. No left shift no chemistry abnormalities warranting dimension. No LFT changes. Total bilirubin within normal limits at 0.2. I think the patient may have symptomatic gallstones but there was no evidence to suggest she has acute cholecystitis. Most likely diagnosis however is GERD/peptic ulcer disease. She is currently asymptomatic, afebrile, no white count and no change in LFTs. Ultrasound of the right upper quadrant was considered but ultimately deferred due to low suspicion for cholecystitis. I did discuss this with the patient as well as return precautions and she will be discharged on omeprazole for GERD with a GI referral Differential Diagnosis Differential Diagnoses: The differential diagnosis associated with the presentation includes as above Lab Data [facility] Lab Attestation statement: I reviewed the patient's lab results. as above 03/20/25 21:17 03/20/25 21:17 Labs: Lab Results 03/20/25 Range/Units 21:17 WBC 9.5 (4.8-10.8) X10*3/uL RBC 4.86 (4.20-5.50) X10*6/uL Hgb 12.1 (12.0-16.0) g/dl Hct 37.8 (37.0-47.0) % MCV 77.8 L (80.0-98.0) fL MCH 24.9 L (27.0-33.0) pg MCHC 32.0 (31.0-35.0) g/dl RDW 15.2 (11.0-16.0) % Plt Count 302 (160-400) X10*3/uL MPV 9.8 (9.4-12.3) fL Immature Gran % (Auto) 0.3 (0.0-0.4) % Neut % (Auto) 66.1 (45-73) % Lymph % (Auto) 26.1 (20-40) % Maverick % (Auto) 5.8 (2-11) % Eos % (Auto) 1.4 (0-4) % Baso % (Auto) 0.3 (0-2) % Lymph # (Auto) 2.5 (1.2-4.9) X10*3/uL Maverick # (Auto) 0.6 (0.1-1.2) X10*3/uL Eos # (Auto) 0.1 (0.0-0.4) X10*3/uL Baso # (Auto) 0.0 (0.0-0.2) X10*3/uL Abs Immat Gran (auto) 0.03 (0.00-0.03) X10*3/uL Absolute Neuts (auto) 6.3 (2.0-8.3) x10*3/uL Absolute Nucleated RBC 0.000 (0.0-0.012) X10*3/uL Nucleated RBC % (auto) 0.0 (0.0-0.2) /100WBC Sodium 138 (135-145) mmol/L Potassium 3.5 (3.3-5.1) mmol/L Chloride 104 (96-108) mmol/L Carbon Dioxide 25 (22-29) mmol/L Anion Gap 13 (12-20) BUN 11 (9-16) mg/dL Creatinine 0.61 (0.5-1.4) mg/dL Estim Creat Clear Calc 136.2 Estimated GFR > 60 Random Glucose 121 H (60-115) mg/dL Calcium 9.2 (8.4-10.2) mg/dL Magnesium 2.0 (1.6-2.6) mg/dL Total Bilirubin 0.2 (0.0-1.0) mg/dL AST 22 (5-31) U/L ALT 14 (0-31) U/L Alkaline Phosphatase 85 (39-117) U/L Troponin I High Sens < 2.7 (<3.5-17.0) ng/L Total Protein 8.3 H (6.5-8.0) g/dL Albumin 4.6 (3.5-5.0) g/dL Lipase 20 (8-78) U/L Influenza Type A (PCR) NEGATIVE (Negative) Influenza Type B (PCR) NEGATIVE (Negative) RSV RNA Qual (PCR) NEGATIVE (Negative) SARS-CoV-2 RNA (RT-PCR) NEGATIVE (Negative) Tests considered The following testing was considered but not selected: considered right upper quadrant ultrasound to evaluate for acute Discharge Plan Discharge Clinical Impression: Abdominal pain Patient Disposition: Home, Self-Care Instructions: GERD (Gastroesophageal Reflux Disease) (ED), Acute Abdominal Pain (ED) Additional Instructions: your workup in the ER today was reassuring. I think your pain is most likely related to peptic ulcer disease or stomach ulcers. For this reason I recommend taking omeprazole daily for the next 2 weeks and following up with GI for a possible endoscopy. You may also benefit from an outpatient ultrasound of the gallbladder to officially rule out gallstones. return for new or worsening symptoms, especially if you develop fever Prescriptions: New omeprazole 20 mg capsule,delayed release(DR/EC) 20 mg PO DAILY Qty: 20 0RF No Action albuterol sulfate 90 mcg/actuation HFA aerosol inhaler 2 puff inhalation Q4-6H PRN (Reason: shortness of breath or wheezing) Qty: 6.7 0RF bupropion HCl 150 mg tablet extended release 24 hr 150 mg PO QAM 90 Days Qty: 90 1RF meclizine 25 mg tablet 25 mg PO BID PRN (Reason: dizziness) Qty: 20 0RF cholecalciferol (vitamin D3) 25 mcg (1,000 unit) capsule 25 mcg PO DAILY 90 Days Qty: 90 0RF ibuprofen 400 mg tablet 400 mg PO Q6H PRN (Reason: pain) Qty: 30 0RF Referrals: [facility] [place] [facility] Services [Provider Group, Gastroenterology] Referral Note: upper abdominal pain Interventions: ED Discharge Assessment Last Done: 03/21/25 00:12 Discharge Date/Time: 03/21/25 00:13 Print Language: French
--- NOTE | 2025-03-20 18:45 | ECG_ITS ---
Test Reason : abdominal pain Blood Pressure : */* mmHG Vent. Rate : 71 BPM Atrial Rate : 71 BPM P-R Int : 132 ms QRS Dur : 76 ms QT Int : 406 ms P-R-T Axes : 2 54 52 degrees QTcB Int : 441 ms Normal sinus rhythm Normal ECG When compared with ECG of 04-Sep-2024 21:24, No significant change was found Referred By: Tyra Briceno Electronically Signed By: JENSEN JAQUEZ
[2025-03-20 21:22] LABS: MANUAL DIFF FLAG NO
[2025-03-20 21:23] LABS: Hematocrit 37.8 % (37.0-47.0); Hemoglobin 12.1 g/dl (12.0-16.0); Imm Gran Abs Auto 0.03 X10*3/uL (0.00-0.03); Imm Gran Pct Auto 0.3 % (0.0-0.4); Lymphocytes Absolute Auto 2.5 X10*3/uL (1.2-4.9); Mean Corpuscular HGB Conc 32.0 g/dl (31.0-35.0); Mean Corpuscular Hemoglobin 24.9 pg (27.0-33.0); Mean Corpuscular Volume 77.8 fL (80.0-98.0); NRBC Abs Auto 0.000 X10*3/uL (0.0-0.012); NRBC Pct Auto 0.0 /100WBC (0.0-0.2); Platelet Count 302 X10*3/uL (160-400); Red Blood Count 4.86 X10*6/uL (4.20-5.50); White Blood Count 9.5 X10*3/uL (4.8-10.8)
[2025-03-20 21:39] LABS: Alanine Aminotransferase 14 U/L (0-31); Albumin Level 4.6 g/dL (3.5-5.0); Alkaline Phosphatase 85 U/L (39-117); Anion Gap 13 (12-20); Aspartate Amino Transferase 22 U/L (5-31); Blood Urea Nitrogen 11 mg/dL (9-16); Calcium 9.2 mg/dL (8.4-10.2); Carbon Dioxide 25 mmol/L (22-29); Chloride 104 mmol/L (96-108); Creatinine Clr Calc Pharmacy 136.2; Estimated Glomerular Filt Rate > 60; Lipase 20 U/L (8-78); Magnesium 2.0 mg/dL (1.6-2.6); Potassium 3.5 mmol/L (3.3-5.1); Sodium 138 mmol/L (135-145); Total Protein 8.3 g/dL (6.5-8.0)
[2025-03-20 21:50] LABS: Troponin-I High Sensitivity < 2.7 ng/L (<3.5-17.0)
[2025-03-20 21:59] LABS: Resp Syncy Virus RNA Qual PCR NEGATIVE (Negative); SARS COV2 PCR INHOUSE NEGATIVE (Negative)
[2025-03-20 22:18] VITALS: BP 143/74; PULSE 86; RESP 16; TEMP 36.7; O2SAT 98
[2025-03-21 00:12] VITALS: BP 143/74; PULSE 86; RESP 16; TEMP 36.7; O2SAT 98
== END 2025-03-21 00:13 | disposition home or self-care (01) ==
PROVIDERS: Physician Assistant Medical; Emergency Provider Emergency Medicine; PCP Internal Medicine
DX: R10.13 Epigastric pain (principal); R10.11 Right upper quadrant pain; R25.2 Cramp and spasm; Z87.891 Personal history of nicotine dependence; Z03.818 Encounter for observation for suspected exposure to other biological agents ruled out
CPT/HCPCS: 36415; 80053; 83690; 83735; 84484; 85025; 87637; 93005; 99284

== ENCOUNTER → 2025-03-20 18:45 | Outpatient (BNV) | payer MEDICAID, SELFPAY | PROVIDERS: Emergency Provider Emergency Medicine; PCP Internal Medicine; Visit Provider Internal Medicine | DX: R10.9 Unspecified abdominal pain (principal) | CPT/HCPCS: 93010 ==